=== PATIENT | male | born 1945 | race Caucasian/White ===

== ENCOUNTER 2016-07-03 23:00 | Emergency (ER) | payer BC, MEDICARE ==
--- NOTE | 2016-07-04 00:15 | ED ---
Sandro Rojas Billy, scribed for Jl Fuller MD on 07/04/16 at 0014 . Lower Extremity - HPI Summary HPI Summary: Patient is a 70 year-old male coming to [facility] for evaluation of left knee pain. 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 Denies head injury or LOC. - History of Current Complaint Chief Complaint: EDExtremityLower Stated Complaint: FALL/L KNEE PAIN Time Seen by Provider: 07/04/16 00:12 Hx Obtained From: Patient Mechanism Of Injury: Fall From Height Of: - stairs Onset of Pain: Hours Severity Initially: Moderate Severity Currently: Moderate Pain Intensity: 8 Pain Scale Used: 0-10 Numeric Timing: Constant Location: Is Discrete @ - left knee Associated Signs And Symptoms: Positive: Negative Able to Bear Weight: Yes - Allergies/Home Medications Allergies/Adverse Reactions: Allergies Allergy/AdvReac Type Severity Reaction Status Date / Time No Known Allergies Allergy Verified 07/03/16 23:12 PMH/Surg Hx/FS Hx/Imm Hx Endocrine/Hematology History: Denies: Hx Diabetes Cardiovascular History: Reports: Hx Hypertension, Other Cardiovascular Problems/ Disorders - HEART CATHERIZATION 12/2012 Respiratory History: Reports: Hx Sleep Apnea, Other Respiratory Problems/ Disorders - PREVIOUS SMOKER Denies: Hx Asthma, Hx Chronic Obstructive Pulmonary Disease (COPD) Musculoskeletal History: Reports: Hx Arthritis - LEFT KNEE, Hx Back Problems - Back Surgery in the distant past Sensory History: Reports: Hx Contacts or Glasses, Hx Hearing Problem - Hard of hearing Denies: Hx Cataracts, Hx Eye Injury, Hx Eye Prosthesis, Hx Glaucoma, Hx Legally Blind, Hx Macular Degeneration, Hx Vision Problem, Hx Deafness, Hx Hearing Aid, Other Sensory Impairments Opthamlomology History: Reports: Hx Contacts or Glasses Denies: Hx Cataracts, Hx Eye Injury, Hx Eye Prosthesis, Hx Glaucoma, Hx Legally Blind, Hx Macular Degeneration, Hx Vision Problem, Other Sensory Impairments - Surgical History Surgery Procedure, Year, and Place: 1989 BACK SURGERY, [facility]. 12/2012 [place], [facility] [place] LEFT TKA Hx Anesthesia Reactions: No Infectious Disease History: No Infectious Disease History: Denies: Traveled Outside the [place] in Last 30 Days - Family History Known Family History: Positive: Cardiac Disease, Hypertension - Social History Alcohol Use: None Substance Use Type: Reports: None Smoking Status (MU): Former Smoker Review of Systems Negative: Fever Positive: Arthralgia All Other Systems Reviewed And Are Negative: Yes Physical Exam Triage Information Reviewed: Yes Vital Signs On Initial Exam: Initial Vitals Temp Pulse Resp BP Pulse Ox 98.6 F 81 16 126/75 95 07/03/16 23:10 07/03/16 23:10 07/03/16 23:10 07/03/16 23:10 07/03/16 23:10 Vital Signs Reviewed: Yes Appearance: Positive: No Pain Distress, Obese Skin: Positive: Warm Eyes: Positive: MACEY ENT: Positive: Hearing grossly normal Respiratory/Lung Sounds: Positive: Breath Sounds Present Musculoskeletal: Positive: Other - lt knee mild diffuse swelling from, no deformity Neurological: Positive: Alert, Oriented to Person Place, Time, Normal Gait Psychiatric: Positive: Affect/Mood Appropriate Diagnostics - Vital Signs Vital Signs Temp Pulse Resp BP Pulse Ox 07/03/16 23:10 98.6 F 81 16 126/75 95 - Laboratory Lab Statement: Any lab studies that have been ordered have been reviewed, and results considered in the medical decision making process. - Radiology Knee XR Radiology Interpretation Completed By: ED Physician - Hardware in place. Otherwise normal. Lower Extremity Course/Dx - Diagnoses Provider Diagnoses: Knee pain Discharge - Discharge Plan Condition: Stable Disposition: HOME Patient Education Materials: Knee Pain (ED) Referrals: Jorge Bowie MD [Primary Care Provider] - The documentation as recorded by the Sandro jordan Billy accurately reflects the service I personally performed and the decisions made by , Jl Fuller MD.
[2016-07-04 00:24] VITALS: BP 112/68
--- NOTE | 2016-07-04 07:22 | RAD ---
INDICATION: Left knee injury. TECHNIQUE: 2 views of the left knee were obtained. FINDINGS: The patient is status post total left knee replacement surgery. The bones and prostheses are in normal alignment. No fracture is seen. IMPRESSION: POSTSURGICAL CHANGES, NO EVIDENCE FOR FRACTURE.
== END 2016-07-04 00:24 | disposition home or self-care (01) ==
LOC: ED 23:00
DX: M25.562 Pain in left knee (principal); Z87.891 Personal history of nicotine dependence
CPT/HCPCS: 99282

== ENCOUNTER 2016-08-14 20:09 | Emergency (ER) | payer BC, MEDICARE ==
[2016-08-14 20:18] VITALS: BP 101/66
--- NOTE | 2016-08-14 21:27 | RAD ---
INDICATION: Left flank pain. COMPARISON: Comparison is made with a prior chest x-ray study from October 14, 2013. TECHNIQUE: Dual-energy PA and lateral views of the chest were obtained. FINDINGS: The heart is within normal limits in size. Mediastinal and hilar contours appear within normal limits. The lungs are underinflated. There is a small infiltrate at the right lung base. There is flattening of the diaphragms suggestive of chronic obstructive pulmonary disease. No pleural effusion is seen. IMPRESSION: EXPIRATORY EXAM, SMALL RIGHT BASILAR INFILTRATE.
--- NOTE | 2016-08-14 21:30 | RAD ---
INDICATION: Left flank abdominal pain. COMPARISON: There are no prior studies available for comparison. TECHNIQUE: Supine and upright views of the abdomen were obtained. FINDINGS: The small bowel and colon appear nondistended. No free intraperitoneal air is seen. No abnormal calcifications are seen. The patient is status post laminectomy and posterior spinal fusion in the lower lumbar spine with pedicle screws. IMPRESSION: NO EVIDENCE FOR ACUTE FINDING.
--- NOTE | 2016-08-14 21:32 | UC ---
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 (STATES HE IS SWEATY ALL THE TIME) NO UTI SYMPTOMS NO CHANGE BOWEL HABITS - History of Current Complaint Chief Complaint: UCAbdominalPain Stated Complaint: SOB,NUMBNESS HANDS,ABD PAIN Time Seen by Provider: 08/14/16 20:22 Hx Obtained From: Patient Onset/Duration: Sudden Onset, Lasting Minutes - SECONDS Timing: Intermittent Episodes Lasting: - SECONDS Severity Initially: Moderate Severity Currently: None Pain Intensity: 0 Pain Scale Used: 0-10 Numeric Location: Other - LEFT FLAND Radiates: No Character: Sharp Aggravating Factor(s):: Nothing Alleviating Factor(s): Spontaneous Resolution Associated Signs And Symptoms: Positive: Diaphoresis - CHRONIC COMPLAINT PER PT , Cough - RARE. Negative: Chest Pain, Dizzy, Back Pain, Constipation, Blood in Stool, Urinary Symptoms, Decreased Appetite, Vomiting, Diarrhea - Allergies/Home Medications Allergies/Adverse Reactions: Allergies Allergy/AdvReac Type Severity Reaction Status Date / Time No Known Allergies Allergy Verified 08/14/16 20:17 PMH/Surg Hx/FS Hx/Imm Hx Previously Healthy: Yes Cardiovascular History: Cardiac Disease, Hypertension - Surgical History Surgical History: Yes Surgery Procedure, Year, and Place: 1989 BACK SURGERY, [facility]. 12/2012 HEART CATHERIZATION, [facility] [place]. LEFT KNEE REPLACEMENT - Family History Known Family History: Positive: Cardiac Disease, Hypertension - Social History Alcohol Use: Rare Substance Use Type: None Smoking Status (MU): Former Smoker Household Exposure Type: Cigarettes - Immunization History Most Recent Influenza Vaccination: DOES NOT GET Most Recent Tetanus Shot: UNKNOWN Most Recent Pneumonia Vaccination: NONE Review of Systems Constitutional: Negative Skin: Negative Eyes: Negative ENT: Negative Respiratory: Negative Cardiovascular: Negative Gastrointestinal: Negative Genitourinary: Negative Motor: Negative Neurovascular: Negative Musculoskeletal: Arthralgia - SHRONIC Neurological: Negative Psychological: Negative All Other Systems Reviewed And Are Negative: Yes Physical Exam Triage Information Reviewed: Yes Appearance: Well-Appearing, No Pain Distress, Well-Nourished, Obese Vital Signs: Initial Vital Signs Temp 97.7 F 08/14/16 20:12 Pulse 104 08/14/16 20:12 Resp 22 08/14/16 20:12 BP 101/66 08/14/16 20:12 Pulse Ox 94 08/14/16 20:12 Vital Signs Reviewed: Yes Eyes: Positive: Conjunctiva Clear ENT: Negative: Hearing grossly normal, Nasal congestion, Trismus Neck: Positive: Supple, Nontender, No Lymphadenopathy Respiratory: Positive: Lungs clear, Normal breath sounds, No respiratory distress, No accessory muscle use Cardiovascular: Positive: RRR, No Murmur Abdomen Description: Positive: Nontender, No Organomegaly, Soft. Negative: CVA Tenderness (R), CVA Tenderness (L) Bowel Sounds: Positive: Present Musculoskeletal: Positive: Edema @ - PRE TIBIAL Psychological Exam: Normal Skin Exam: Normal Diagnostics - EKG Cardiac Rate: NL Cardiac Rhythm: Sinus: Normal Ectopy: None ST Segment: Non-Specific Abd Pain Male Course/Dx - Differential Dx/Clinical Impression Provider Diagnoses: PNEUMONIA Discharge - Discharge Plan Condition: Stable Disposition: HOME Prescriptions: Amoxicillin (*) [Amoxicillin 875 MG (*)] 875 mg PO BID #20 tab Patient Education Materials: Pneumonia (ED) Referrals: Jorge Bowie MD [Primary Care Provider] - 2 Days Additional Instructions: YOU MAY HAVE AN EARLY PNEUMONIA TO ER FOR NEW OR WROSENING SYMPTOMS RECHECK IN 1-2 DAYS
[2016-08-14] MEDS ORDERED: Amoxicillin CAP* 500 MG PO ONE (21:45)
== END 2016-08-14 21:55 | disposition home or self-care (01) ==
LOC: UCEAST 20:09
DX: J18.9 Pneumonia, unspecified organism (principal); I10 Essential (primary) hypertension; E66.9 Obesity, unspecified; Z96.652 Presence of left artificial knee joint; Z87.891 Personal history of nicotine dependence
CPT/HCPCS: 71020; 74020; 93005; 99212; A9270-GY; G0463

== ENCOUNTER 2016-08-30 13:42 | Emergency (ER) | payer BC, MEDICARE ==
[2016-08-30 15:49] LABS: Hematocrit 32 % (42-52); Hemoglobin 10.9 g/dl (14.0-18.0); Mean Corpuscular HGB Conc 34 g/dl (31-36); Mean Corpuscular Hemoglobin 32 pg (27-31); Mean Corpuscular Volume 94 fL (80-94); Mean Platelet Volume 10 um3 (7.4-10.4); Red Blood Count 3.39 10^6/ul (4.0-5.4); Red Cell Distribution Width 13 % (10.5-15); White Blood Count 7.3 10^3/ul (3.5-10.8)
[2016-08-30 16:03] LABS: Albumin 3.7 g/dL (3.2-5.2); BUN/Creatinine Ratio 17.1 (8-20); EGFR African American 64.4 (>60); EGFR Non-African American 50.1 (>60); Globulin 4.2 g/dL (2-4); Potassium 3.8 mmol/L (3.5-5.0); Total Bilirubin 0.8 mg/dL (0.2-1.0); Total Protein 7.9 g/dL (6.4-8.9)
[2016-08-30 17:49] VITALS: BP 133/76
--- NOTE | 2016-08-30 22:33 | ED ---
Ilsa Rojas Seung-Jae, scribed for Graham Brown MD on 08/30/16 at 1629 . Complex/Multi-Sys Presentation - HPI Summary HPI Summary: Pt is a 71 y/o M who was referred from [facility] presenting to the ED with c/o nausea and vomiting. Onset was 3 days ago and has been constant REEL MAN. Pt states having eaten nothing other than some nell kee and toast for 3 days. Sx aggravated by PO intake, alleviated by spontaneous resolution. Currently pt states improvement of Sx and wishes to try consuming food. Pt denies diarrhea. Pt had recently finished his medication for PNA, and states that pain from PNA is gone. Pt is a former smoker. - History Of Current Complaint Chief Complaint: EDNauseaVomitDiarrh Time Seen by Provider: 08/30/16 16:04 Hx Obtained From: Patient Onset/Duration: Gradual Onset, Lasting Days Timing: Constant Severity Currently: None Severity Initially: Moderate Aggravating Factor(s): PO intake Alleviating Factor(s): Spontaneous resolution Associated Signs And Symptoms: Positive: Nausea, Vomiting. Negative: Diarrhea - Allergies/Home Medications Allergies/Adverse Reactions: Allergies Allergy/AdvReac Type Severity Reaction Status Date / Time No Known Allergies Allergy Verified 08/14/16 20:17 PMH/Surg Hx/FS Hx/Imm Hx Previously Healthy: No Endocrine/Hematology History: Denies: Hx Diabetes Cardiovascular History: Reports: Hx Hypertension, Other Cardiovascular Problems/ Disorders - HEART CATHERIZATION 12/2012 Respiratory History: Reports: Hx Sleep Apnea, Other Respiratory Problems/ Disorders - PREVIOUS SMOKER Denies: Hx Asthma, Hx Chronic Obstructive Pulmonary Disease (COPD) Musculoskeletal History: Reports: Hx Arthritis - LEFT KNEE, Hx Back Problems - Back Surgery in the distant past Sensory History: Reports: Hx Contacts or Glasses, Hx Hearing Problem - Hard of hearing Denies: Hx Cataracts, Hx Eye Injury, Hx Eye Prosthesis, Hx Glaucoma, Hx Legally Blind, Hx Macular Degeneration, Hx Vision Problem, Hx Deafness, Hx Hearing Aid, Other Sensory Impairments Opthamlomology History: Reports: Hx Contacts or Glasses Denies: Hx Cataracts, Hx Eye Injury, Hx Eye Prosthesis, Hx Glaucoma, Hx Legally Blind, Hx Macular Degeneration, Hx Vision Problem, Other Sensory Impairments - Surgical History Surgery Procedure, Year, and Place: 1989 BACK SURGERY, [facility]. 12/2012 [place], [facility] [place]NEE REPLACEMENT Hx Anesthesia Reactions: No Infectious Disease History: No Infectious Disease History: Denies: Traveled Outside the [place] in Last 30 Days - Family History Known Family History: Positive: Cardiac Disease, Hypertension - Social History Alcohol Use: Rare Substance Use Type: Reports: None Hx Tobacco Use: Yes Smoking Status (MU): Former Smoker Review of Systems Constitutional: Negative Eyes: Negative ENT: Negative Cardiovascular: Negative Positive: Palpitations Respiratory: Negative Positive: Vomiting, Nausea. Negative: Diarrhea Genitourinary: Negative Musculoskeletal: Negative Skin: Negative Neurological: Negative Psychological: Normal All Other Systems Reviewed And Are Negative: Yes Physical Exam Triage Information Reviewed: Yes Vital Signs On Initial Exam: Initial Vitals Temp Pulse Resp BP Pulse Ox 100.6 F 107 22 115/88 91 08/30/16 13:53 08/30/16 13:53 08/30/16 13:53 08/30/16 13:53 08/30/16 13:53 Vital Signs Reviewed: Yes Appearance: Positive: Well-Appearing, No Pain Distress Skin: Positive: Warm, Skin Color Reflects Adequate Perfusion, Dry Head/Face: Positive: Normal Head/Face Inspection Eyes: Positive: Normal ENT: Positive: Normal ENT inspection Neck: Positive: Supple, Nontender Respiratory/Lung Sounds: Positive: Clear to Auscultation, Breath Sounds Present Cardiovascular: Positive: RRR Abdomen Description: Positive: Nontender, Soft Bowel Sounds: Positive: Present Musculoskeletal: Positive: Normal Neurological: Positive: Normal Psychiatric: Positive: Normal Diagnostics - Vital Signs Vital Signs Temp Pulse Resp BP Pulse Ox 08/30/16 15:03 100.6 F 107 20 115/88 95 08/30/16 13:53 100.6 F 107 22 115/88 91 - Laboratory Lab Results: Lab Results 08/30/16 08/30/16 Range/Units 15:14 15:14 WBC 7.3 (3.5-10.8) 10^3/ul RBC 3.39 L (4.0-5.4) 10^6/ul Hgb 10.9 L (14.0-18.0) g/dl Hct 32 L (42-52) % MCV 94 (80-94) fL MCH 32 H (27-31) pg MCHC 34 (31-36) g/dl RDW 13 (10.5-15) % Plt Count 146 L (150-450) 10^3/ul MPV 10 (7.4-10.4) um3 Neut % (Auto) 61.9 (38-83) % Lymph % (Auto) 28.5 (25-47) % [place] % (Auto) 9.0 (1-9) % Eos % (Auto) 0.1 (0-6) % Baso % (Auto) 0.5 (0-2) % Absolute Neuts (auto) 4.5 (1.5-7.7) 10^3/ul Absolute Lymphs (auto) 2.1 (1.0-4.8) 10^3/ul Absolute Monos (auto) 0.7 (0-0.8) 10^3/ul Absolute Eos (auto) 0 (0-0.6) 10^3/ul Absolute Basos (auto) 0 (0-0.2) 10^3/ul Absolute Nucleated RBC 0 10^3/ul Nucleated RBC % 0 Sodium 131 L (133-145) mmol/L Potassium 3.8 (3.5-5.0) mmol/L Chloride 98 L (101-111) mmol/L Carbon Dioxide 26 (22-32) mmol/L Anion Gap 7 (2-11) mmol/L BUN 24 (6-24) mg/dL Creatinine 1.40 H (0.67-1.17) mg/dL Est GFR ( Amer) 64.4 (>60) Est GFR (Non-Af Amer) 50.1 (>60) BUN/Creatinine Ratio 17.1 (8-20) Glucose 118 H (70-100) mg/dL Calcium 9.0 (8.6-10.3) mg/dL Total Bilirubin 0.80 (0.2-1.0) mg/dL AST 16 (13-39) U/L ALT 15 (7-52) U/L Alkaline Phosphatase 59 (34-104) U/L Troponin I 0.00 (<0.04) ng/mL Total Protein 7.9 (6.4-8.9) g/dL Albumin 3.7 (3.2-5.2) g/dL Globulin 4.2 H (2-4) g/dL Albumin/Globulin Ratio 0.9 L (1-3) Result Diagrams: 08/30/16 15:14 08/30/16 15:14 Lab Statement: Any lab studies that have been ordered have been reviewed, and results considered in the medical decision making process. Re-Evaluation - Re-Evaluation First Eval Re-Evaluation Time: 17:33 Change: Improved Comment: Feeling better and owuld like to be D/C Complex Multi-Symp Course/Dx Course Of Treatment: Mr. Campos was recently treated for pneumonia and felt better for several days. The last couple of days he's been nauseated and anorexic. Otherwise he feel fine and he only vomited once two days ago. He was feeling better when I saw him and felt that he did not need to be seen. We gave him some food and he was able to eat and still felt fine. He was D/C'd to return or F/U if he relapses. - Diagnoses Provider Diagnoses: Nausea Discharge - Discharge Plan Condition: Stable Disposition: HOME Patient Education Materials: Acute Nausea and Vomiting (ED) Referrals: Mayo Goodrich MD [Primary Care Provider] - 3 Days The documentation as recorded by the Ilsa jordan Seung-Jae accurately reflects the service I personally performed and the decisions made by me, Graham Brown MD.
== END 2016-08-30 17:48 | disposition home or self-care (01) ==
LOC: ED 13:42
DX: R11.2 Nausea with vomiting, unspecified (principal); R00.2 Palpitations; Z87.891 Personal history of nicotine dependence
CPT/HCPCS: 36415; 80053; 84484; 85025; 99283

== ENCOUNTER 2017-07-02 20:45 | Emergency (ER) | payer BC, MEDICARE ==
[2017-07-02 20:54] VITALS: BP 123/73
--- NOTE | 2017-07-02 20:56 | UC ---
Lower Extremity/Ankle HPI - HPI Summary HPI Summary: 71 yo male presents with right foot pain since yesterday. He tells me that yesterday he was walking in the kitchen barefoot and felt a sharp pain in his foot. Today his friend looked at pt's foot and said he pulled out a small piece of glass. Pt wants to make sure the glass is gone. Thinks last tetanus was 5 years ago - History of Current Complaint Chief Complaint: UCLowerExtremity Stated Complaint: FOOT INJURY Time Seen by Provider: 07/02/17 20:56 Hx Obtained From: Patient Onset/Duration: Sudden Onset Severity Initially: Severe Severity Currently: Severe Pain Intensity: 8 Pain Scale Used: 0-10 Numeric Aggravating Factor(s): Standing, Ambulation Able to Bear Weight: Yes - Allergies/Home Medications Allergies/Adverse Reactions: Allergies Allergy/AdvReac Type Severity Reaction Status Date / Time No Known Allergies Allergy Verified 07/02/17 20:54 PMH/Surg Hx/FS Hx/Imm Hx Cardiovascular History: Hypertension - Surgical History Surgical History: Yes Surgery Procedure, Year, and Place: 1989 BACK SURGERY, [facility]. 12/2012 HEART CATHERIZATION, [facility] – [place]. LEFT KNEE REPLACEMENT - Family History Known Family History: Positive: Cardiac Disease, Hypertension - Social History Occupation: Retired Lives: With Family Alcohol Use: Rare Substance Use Type: None Smoking Status (MU): Former Smoker Household Exposure Type: Cigarettes - Immunization History Most Recent Influenza Vaccination: DOES NOT GET Most Recent Tetanus Shot: UNKNOWN Most Recent Pneumonia Vaccination: NONE Review of Systems Constitutional: Negative Skin: Other - ?FB in foot Respiratory: Negative Cardiovascular: Negative Neurovascular: Negative Musculoskeletal: Negative Neurological: Negative Psychological: Negative All Other Systems Reviewed And Are Negative: Yes Physical Exam - Summary Physical Exam Summary: GENERAL: NAD. Obese SKIN: Plantar surface of right foot at 5th MTP: 1mm area of scant bleeding. Very TTP. No hardness or FB appreciated. No erythema. NECK: Supple. Nontender. No lymphadenopathy. CHEST: No accessory muscle use. Breathing comfortably and in no distress. CV: RRR. Without m/r/g. Pulses intact PT and DP. Brisk cap refill. NEURO: Alert. Sensations intact and symmetric B/L LEs PSYCH: Age appropriate behavior. Triage Information Reviewed: Yes Vital Signs: Initial Vital Signs Temp 97.9 F 07/02/17 20:51 Pulse 81 07/02/17 20:51 Resp 24 07/02/17 20:51 BP 123/73 07/02/17 20:51 Pulse Ox 98 07/02/17 20:51 Lower Extremity Course/Dx - Course Course Of Treatment: No FB appreciated, but does appear that he stepped on something in that area recently. Advised to apply band-aid and will heal in few days - Differential Dx/Diagnosis Provider Diagnoses: Right foot step on glass Discharge - Sign-Out/Discharge Documenting (check all that apply): Discharge/Admit/Transfer - Discharge Plan Condition: Stable Disposition: HOME Patient Education Materials: Soft Tissue Foreign Body (ED) Referrals: Mayo Goodrich MD [Primary Care Provider] - Additional Instructions: If you develop a fever, shortness of breath, chest pain, new or worsening symptoms - please call your PCP or go to the ED. - Billing Disposition and Condition Condition: STABLE Disposition: HOME
== END 2017-07-02 21:30 | disposition home or self-care (01) ==
LOC: UCEAST 20:45
DX: S91.331A Puncture wound without foreign body, right foot, initial encounter (principal); W25.XXXA Contact with sharp glass, initial encounter; Y93.01 Activity, walking, marching and hiking; Y92.000 Kitchen of unspecified non-institutional (private) residence as the place of occurrence of the external cause; I10 Essential (primary) hypertension; Z96.652 Presence of left artificial knee joint; Z87.891 Personal history of nicotine dependence
CPT/HCPCS: 99211; G0463

== ENCOUNTER 2017-07-11 20:09 | Emergency (ER) | payer BC, MEDICARE ==
[2017-07-11 20:23] VITALS: BP 124/78
--- NOTE | 2017-07-11 20:52 | UC ---
Skin Complaint HPI - HPI Summary HPI Summary: 10 DAYS AGO PATIENT REPORTS HE STEPPED ON A PIECE OF GLASS WHICH HIS FRIEND REMOVED. CAME TO THE URGENT CARE THE NEXT DAY TO ENSURE THERE WAS NO FURTHER FB IN HIS FOOT. PATIENT WAS EVALUATED AND CLINICALLY APPEARED TO BE FREE OF FOREIGN BODY. PATIENT STATES HE HAS HAD DISCOMFORT IN THE AREA EVER SINCE AND 2 DAYS AGO IT BECAME RED AND SWOLLEN AND MORE PAINFUL. NO FEVER. - History of Current Complaint Chief Complaint: UCLowerExtremity Time Seen by Provider: 07/11/17 20:28 Stated Complaint: glass IN FOOT Hx Obtained From: Patient Onset/Duration: Gradual Onset, Lasting Days, Still Present Timing: Constant Onset Severity: Moderate Current Severity: Moderate Pain Intensity: 0 Pain Scale Used: 0-10 Numeric Location: Foot (Right) Character: Redness, Painful Aggravating Factor(s): Touch Alleviating Factor(s): Nothing Associated Signs & Symptoms: Positive: Tenderness - Allergy/Home Medications Allergies/Adverse Reactions: Allergies Allergy/AdvReac Type Severity Reaction Status Date / Time No Known Allergies Allergy Verified 07/11/17 20:17 Review of Systems Constitutional: Negative Skin: Other - ABSCESS AND ERYTHEMA RIGHT FOOT Respiratory: Negative Cardiovascular: Negative Gastrointestinal: Negative All Other Systems Reviewed And Are Negative: Yes PMH/Surg Hx/FS Hx/Imm Hx Cardiovascular History: Hypertension - Surgical History Surgical History: Yes Surgery Procedure, Year, and Place: 1989 BACK SURGERY, [facility]. 12/2012 HEART CATHERIZATION, [facility] [place]. LEFT KNEE REPLACEMENT - Family History Known Family History: Positive: Cardiac Disease, Hypertension - Social History Alcohol Use: Rare Substance Use Type: None Smoking Status (MU): Former Smoker Household Exposure Type: Cigarettes - Immunization History Most Recent Influenza Vaccination: DOES NOT GET Most Recent Tetanus Shot: UNKNOWN Most Recent Pneumonia Vaccination: NONE Physical Exam Triage Information Reviewed: Yes Appearance: Well-Appearing, No Pain Distress, Well-Nourished Vital Signs: Initial Vital Signs Temp 98.7 F 07/11/17 20:17 Pulse 78 07/11/17 20:17 Resp 18 07/11/17 20:17 BP 124/78 07/11/17 20:17 Pulse Ox 96 07/11/17 20:17 Vital Signs Reviewed: Yes Eyes: Positive: Conjunctiva Clear ENT: Positive: Hearing grossly normal Neck: Positive: Supple Respiratory: Positive: No respiratory distress, No accessory muscle use Cardiovascular: Positive: Pulses Normal Abdomen Description: Positive: Soft Musculoskeletal: Positive: ROM Intact Neurological: Positive: Alert Psychological: Positive: Age Appropriate Behavior Skin: Positive: Other - 2CM X 1.5CM AREA OF FLUCTUANCE SURROUNDED BY 6CM AREA OF ERYTHEMA. MILDLY TENDER. Diagnostics - Radiology RIGHT FOOT XRAY Xray Interpretation: No Acute Changes - NO FB Radiology Interpretation Completed By: Radiologist Course/Dx - Course Course Of Treatment: ABSCESS I&D'D, PUS EXPRESSED AND CULTURE SENT. AFTER DEBRIDING WOUND A FOREIGN BODY WAS DISCOVERED AND A 2.3CM SEWING NEEDLE WAS REMOVED FROM PT LATERAL RIGHT FOOT AT LEVEL OF MID 5TH METATARSAL. XRAY NEGATIVE FOR ANY FURTHER RETAINED FB. WILL COVER WITH LEVOFLOXACIN AND HAVE PT FOLLOW-UP FOR RECHECK IN 2-3 DAYS. TDAP BOOSTED. - Diagnoses Provider Diagnoses: 1. RIGHT FOOT FOREIGN BODY REMOVAL. 2. RIGHT FOOT ABSCESS. 3. TDAP BOOSTER Discharge - Sign-Out/Discharge Documenting (check all that apply): Discharge/Admit/Transfer - Discharge Plan Condition: Stable Disposition: HOME Prescriptions: levoFLOXacin [Levofloxacin] 750 mg PO DAILY #6 tablet Patient Education Materials: Soft Tissue Foreign Body (ED), Abscess (ED) Referrals: Mayo Goodrich MD [Primary Care Provider] - 3 Days Additional Instructions: 2.3 CM SEWING NEEDLE REMOVED FROM YOUR RIGHT FOOT TODAY. YOU HAVE AN ASSOCIATED ABSCESS AND CELLULITIS. TAKE THE ANTIBIOTIC FOR THE FULL 7 DAYS. CONTINUE HOT SOAKS SEVERAL TIMES DAILY. TRY TO AVOID WALKING ON IT MUCH POSSIBLE UNTIL IT IS FULLY HEALED. GIVEN YOUR INABILITY TO SEE THE BOTTOM OF THE FOOT IT IS VERY IMPORTANT THAT YOU HAVE THIS WOUND RECHECKED IN 2-3 DAYS. FOLLOW-UP WITH YOUR PCP FOR THIS OR RETURN HERE FOR REEVALUATION IF YOU'RE UNABLE TO SECURE AN APPOINTMENT WITH YOUR PCP. TETANUS IMMUNIZATION GIVEN (TDAP): You have been given an immunization against tetanus. Please record this in your records. In general, a booster is needed only once every 10 years. The tetanus shot protects against tetanus or "lockjaw," which is a complication of certain wound infections (the tetanus shot cannot protect against the actual infection). The immunization site may become warm and red due to local reaction. If this occurs, apply warm compresses and take aspirin or ibuprofen to reduce inflammation and discomfort. Return for evaluation if the reaction becomes severe. - Billing Disposition and Condition Condition: STABLE Disposition: HOME
[2017-07-11] MEDS ORDERED: Tetan/Diph/Pertus SYR(Tdap)* 0.5 ML SYR(BOOSTRIX) use SYR IM ONE (21:09)
[2017-07-11] MEDS ORDERED: Levofloxacin TAB* 250 MG PO ONE (21:19)
--- NOTE | 2017-07-11 21:43 | RAD ---
INDICATION: Pain and redness at the right fifth metatarsal 2 weeks after removing foreign body COMPARISON: None. TECHNIQUE: 3 views of the right foot were obtained. FINDINGS: There is no radiopaque foreign body overlying the subcutaneous soft tissue. On the oblique view of the foot there is a faintly circumscribed relatively hypodense subcutaneous focus just lateral to the diaphysis of the right fifth metatarsal measuring 1.2 cm in greatest dimension. The adequately corticated bones are properly aligned. Joint spaces appear maintained. No fracture, dislocation or focal bony abnormality is seen. IMPRESSION: NO SUBCUTANEOUS FOREIGN BODY IS DISCRETELY VISUALIZED BUT THERE IS A FAINT 1.2 CM SUBCUTANEOUS LUCENCY JUST LATERAL TO THE RIGHT FIFTH METATARSAL. If the patient's symptoms persist, follow-up imaging is recommended.
--- NOTE | 2017-07-13 19:41 | UC ---
- Progress Note Progress Note: 07/13/2017 Wound culture preliminary: Staphylococcus epidermis. Pt Rx Levofloxacin PO which covers. Awaiting final sensitivity report. Minoo Long PA-C Discharge - Sign-Out/Discharge Documenting (check all that apply): Discharge/Admit/Transfer - D/c home - Discharge Plan Condition: Stable Disposition: HOME Prescriptions: levoFLOXacin [Levofloxacin] 750 mg PO DAILY #6 tablet Patient Education Materials: Soft Tissue Foreign Body (ED), Abscess (ED) Referrals: Mayo Goodrich MD [Primary Care Provider] - 3 Days Additional Instructions: 2.3 CM SEWING NEEDLE REMOVED FROM YOUR RIGHT FOOT TODAY. YOU HAVE AN ASSOCIATED ABSCESS AND CELLULITIS. TAKE THE ANTIBIOTIC FOR THE FULL 7 DAYS. CONTINUE HOT SOAKS SEVERAL TIMES DAILY. TRY TO AVOID WALKING ON IT MUCH POSSIBLE UNTIL IT IS FULLY HEALED. GIVEN YOUR INABILITY TO SEE THE BOTTOM OF THE FOOT IT IS VERY IMPORTANT THAT YOU HAVE THIS WOUND RECHECKED IN 2-3 DAYS. FOLLOW-UP WITH YOUR PCP FOR THIS OR RETURN HERE FOR REEVALUATION IF YOU'RE UNABLE TO SECURE AN APPOINTMENT WITH YOUR PCP. TETANUS IMMUNIZATION GIVEN (TDAP): You have been given an immunization against tetanus. Please record this in your records. In general, a booster is needed only once every 10 years. The tetanus shot protects against tetanus or "lockjaw," which is a complication of certain wound infections (the tetanus shot cannot protect against the actual infection). The immunization site may become warm and red due to local reaction. If this occurs, apply warm compresses and take aspirin or ibuprofen to reduce inflammation and discomfort. Return for evaluation if the reaction becomes severe. - Billing Disposition and Condition Condition: STABLE Disposition: HOME
--- NOTE | 2017-07-18 09:53 | UC ---
- Progress Note Progress Note: call to patient to assure his foot wound had resolved---message left on home phone to return call Discharge - Sign-Out/Discharge Documenting (check all that apply): Post-Discharge Follow Up - Discharge Plan Condition: Stable Disposition: HOME Prescriptions: levoFLOXacin [Levofloxacin] 750 mg PO DAILY #6 tablet Patient Education Materials: Soft Tissue Foreign Body (ED), Abscess (ED) Referrals: Mayo Goodrich MD [Primary Care Provider] - 3 Days Additional Instructions: 2.3 CM SEWING NEEDLE REMOVED FROM YOUR RIGHT FOOT TODAY. YOU HAVE AN ASSOCIATED ABSCESS AND CELLULITIS. TAKE THE ANTIBIOTIC FOR THE FULL 7 DAYS. CONTINUE HOT SOAKS SEVERAL TIMES DAILY. TRY TO AVOID WALKING ON IT MUCH POSSIBLE UNTIL IT IS FULLY HEALED. GIVEN YOUR INABILITY TO SEE THE BOTTOM OF THE FOOT IT IS VERY IMPORTANT THAT YOU HAVE THIS WOUND RECHECKED IN 2-3 DAYS. FOLLOW-UP WITH YOUR PCP FOR THIS OR RETURN HERE FOR REEVALUATION IF YOU'RE UNABLE TO SECURE AN APPOINTMENT WITH YOUR PCP. TETANUS IMMUNIZATION GIVEN (TDAP): You have been given an immunization against tetanus. Please record this in your records. In general, a booster is needed only once every 10 years. The tetanus shot protects against tetanus or "lockjaw," which is a complication of certain wound infections (the tetanus shot cannot protect against the actual infection). The immunization site may become warm and red due to local reaction. If this occurs, apply warm compresses and take aspirin or ibuprofen to reduce inflammation and discomfort. Return for evaluation if the reaction becomes severe. - Billing Disposition and Condition Condition: STABLE Disposition: HOME
== END 2017-07-11 22:15 | disposition home or self-care (01) ==
LOC: UCEAST 20:09
DX: S91.341S Puncture wound with foreign body, right foot, sequela (principal); W27 Contact with nonpowered hand tool; L02.611 Cutaneous abscess of right foot; Z23 Encounter for immunization; I10 Essential (primary) hypertension; Z96.652 Presence of left artificial knee joint; Z87.891 Personal history of nicotine dependence
CPT/HCPCS: 28190; 87070; 87077; 87186; 87205; 87640; 87641; 90471; 90715; 99212; A9270-GY; G0463

== ENCOUNTER 2017-07-14 18:44 | Emergency (ER) | payer BC, MEDICARE ==
[2017-07-14 19:12] VITALS: BP 104/70
--- NOTE | 2017-07-14 19:45 | UC ---
Skin Complaint HPI - HPI Summary HPI Summary: Patient is a 71-year-old male presenting to the with it chief complaint of recheck of a foot injury. He sustained the injury approximate 10 days ago after he stepped on a sewing needle. The needle was removed upon his second visit to the urgent care. The needle was 2.3cm in length. He was placed on levofloxacin 750 mg once daily 7 days. He continues to have 3 days left. He is here for a wound check as he was unable to get into see his physician. Denies any fevers, sweats, chills. Denies any erythema around the area. Denies any numbness or tingling to the area. . - History of Current Complaint [facility] Time Seen by Provider: 07/14/17 18:48 Stated Complaint: RECHECK FOOT Hx Obtained From: Patient Onset/Duration: Sudden Onset Skin Exposure Onset/Duration: Hours Ago Timing: Constant Onset Severity: Mild Current Severity: Mild Pain Intensity: 0 Pain Scale Used: 0-10 Numeric Location: Discrete - Right lateral foot Aggravating Factor(s): Nothing Alleviating Factor(s): Nothing Associated Signs & Symptoms: Positive: Negative Related History: Trauma - Allergy/Home Medications Allergies/Adverse Reactions: Allergies Allergy/AdvReac Type Severity Reaction Status Date / Time No Known Allergies Allergy Verified 07/11/17 20:17 Review of Systems Constitutional: Negative Skin: Other - Right lateral foot FB removed x 3 days ago Respiratory: Negative Cardiovascular: Negative Gastrointestinal: Negative Motor: Negative Neurovascular: Negative Psychological: Negative Is Patient Immunocompromised?: No All Other Systems Reviewed And Are Negative: Yes PMH/Surg Hx/FS Hx/Imm Hx Previously Healthy: Yes - Surgical History Surgical History: Yes Surgery Procedure, Year, and Place: 1989 BACK SURGERY, [facility]. 12/2012 HEART CATHERIZATION, [facility] [place]. LEFT KNEE REPLACEMENT - Family History Known Family History: Positive: Cardiac Disease, Hypertension - Social History Occupation: Unemployed Lives: Alone Alcohol Use: None Substance Use Type: None Smoking Status (MU): Former Smoker Household Exposure Type: Cigarettes - Immunization History Most Recent Influenza Vaccination: DOES NOT GET Most Recent Tetanus Shot: UNKNOWN Most Recent Pneumonia Vaccination: NONE Physical Exam Triage Information Reviewed: Yes Appearance: Well-Appearing, No Pain Distress, Well-Nourished Vital Signs: Initial Vital Signs Temp 98.3 F 05/25/18 19:03 Pulse 85 07/14/17 19:03 Resp 16 07/14/17 19:03 BP 104/70 07/14/17 19:03 Pulse Ox 98 07/14/17 19:03 Vital Signs Reviewed: Yes Eye Exam: Normal Neck: Positive: Supple Respiratory Exam: Normal Respiratory: Positive: Chest non-tender Cardiovascular Exam: Normal Cardiovascular: Positive: RRR Musculoskeletal Exam: Normal Musculoskeletal: Positive: Strength Intact Neurological Exam: Normal Neurological: Positive: Alert Psychological: Positive: Normal Response To Family Skin: Positive: Other - 2cm diamater well healed area to the R lateral side of the foot without erythema or warmth Course/Dx - Course Course Of Treatment: Patient was evaluated for right plantar surface wound recheck. 2.3 cm sewing needle was dislodged from the lateral side of his right foot 3 days ago. He denies any pain to the area. Denies any erythema or warmth. He has been on 3 days of levofloxacin. I have encouraged him to take 2 more days, but due to no signs of infection, I do not believe it is worth to take the full 7 day course. He is okay with this plan and will be discharged back to his PCP. - Diagnoses Provider Diagnoses: FB removal wound recheck Discharge - Sign-Out/Discharge Documenting (check all that apply): Discharge/Admit/Transfer - Discharge Plan Condition: Stable Disposition: HOME Referrals: Mayo Goodrich MD [Primary Care Provider] - Additional Instructions: Continue with antibiotics x 2 more days then stop taking The wound has healed and has no signs of infection - Billing Disposition and Condition Condition: STABLE Disposition: HOME
== END 2017-07-14 19:14 | disposition home or self-care (01) ==
LOC: UCEAST 18:44
DX: Z48.817 Encounter for surgical aftercare following surgery on the skin and subcutaneous tissue (principal); Z87.891 Personal history of nicotine dependence
CPT/HCPCS: 99211; G0463

== ENCOUNTER → 2017-10-10 01:58 | Emergency (ER) | payer BC, MEDICARE ==
[2017-10-10 02:54] LABS: ABS Basophils 0.1 10^3/ul (0-0.2); ABS Eosinophils 0.2 10^3/ul (0-0.6); ABS Lymphocytes 1.6 10^3/ul (1.0-4.8); ABS Monocytes 0.4 10^3/ul (0-0.8); ABS Neutrophils 4.5 10^3/ul (1.5-7.7); ABS Nucleated RBC 0 10^3/ul; Eosinophil % 3.1 % (0-6); Hematocrit 36 % (42-52); Hemoglobin 12.5 g/dl (14.0-18.0); Lymphocyte % 23.6 % (25-47); Mean Corpuscular HGB Conc 34 g/dl (31-36); Mean Corpuscular Hemoglobin 32 pg (27-31); Mean Corpuscular Volume 93 fL (80-94); Mean Platelet Volume 9.2 um3 (7.4-10.4); Nucleated Red Blood Cells % 0.1; Platelet Count 211 10^3/ul (150-450); Red Blood Count 3.89 10^6/ul (4.00-5.40); Red Cell Distribution Width 14 % (10.5-15); White Blood Count 6.9 10^3/ul (3.5-10.8)
[2017-10-10 03:12] LABS: EGFR Non-African American 66.7 (>60)
[2017-10-10 03:31] LABS: Urine Appearance Clear; Urine Blood Negative (Negative); Urine Color Yellow; Urine Ketones Negative (Negative); Urine Protein Negative (Negative); Urine Specific Gravity 1.014 (1.010-1.030); Urine Urobilinogen Negative (Negative)
--- NOTE | 2017-10-10 04:45 | ED ---
Shortness of Breath - HPI Summary HPI Summary: Patient complains of nasal congestion 2 days, not being able to breathe when he lay down to sleep tonight. Patient states he moved to the couch in the living room with relief of SOB, but does state he felt a little dizzy. Denies fever, cough, sore throat, CP, N/V/D, abdominal pain, change in urine, change in BM. Medical history is HTN. Denies prior cardiac history. Nonsmoker, denies EtOH, illegal drug use. Symptoms resolved by arrival here in ED. - History of Current Complaint Chief Complaint: EDUpperRespComplaint Time Seen by Provider: 10/10/17 02:29 Hx Obtained From: Patient Onset/Duration: Sudden Onset Current Severity: Mild Dyspnea At: Rest Associated Signs & Symptoms: Negative - Allergy/Home Medications Allergies/Adverse Reactions: Allergies Allergy/AdvReac Type Severity Reaction Status Date / Time No Known Allergies Allergy Verified 07/11/17 20:17 Home Medications: Home Medications Lisinopril 40 mg PO DAILY 10/10/17 [History Confirmed 10/10/17] PMH/Surg Hx/FS Hx/Imm Hx Endocrine/Hematology History: Denies: Hx Anticoagulant Therapy, Hx Diabetes Cardiovascular History: Reports: Hx Hypertension, Other Cardiovascular Problems/ Disorders - HEART CATHERIZATION 12/2012 Denies: Hx Cardiac Arrest Respiratory History: Reports: Hx Sleep Apnea, Other Respiratory Problems/ Disorders - PREVIOUS SMOKER Denies: Hx Asthma, Hx Chronic Obstructive Pulmonary Disease (COPD) Musculoskeletal History: Reports: Hx Arthritis - LEFT KNEE, Hx Back Problems - Back Surgery in the distant past Sensory History: Reports: Hx Contacts or Glasses, Hx Hearing Problem - Hard of hearing Denies: Hx Cataracts, Hx Eye Injury, Hx Eye Prosthesis, Hx Glaucoma, Hx Legally Blind, Hx Macular Degeneration, Hx Vision Problem, Hx Deafness, Hx Hearing Aid, Other Sensory Impairments Opthamlomology History: Reports: Hx Contacts or Glasses Denies: Hx Cataracts, Hx Eye Injury, Hx Eye Prosthesis, Hx Glaucoma, Hx Legally Blind, Hx Macular Degeneration, Hx Vision Problem, Other Sensory Impairments - Surgical History Surgery Procedure, Year, and Place: 1989 BACK SURGERY, [facility]. 12/2012 [place] [facility] [place]NEE REPLAC[place] Hx Anesthesia Reactions: No Infectious Disease History: No Infectious Disease History: Denies: Traveled Outside the [place] in Last 30 Days - Family History Known Family History: Positive: Cardiac Disease, Hypertension - Social History Alcohol Use: None Substance Use Type: Reports: None Hx Tobacco Use: Yes Smoking Status (MU): Former Smoker Review of Systems Constitutional: Negative Eyes: Negative Positive: Nasal Discharge Cardiovascular: Negative Positive: Shortness Of Breath Gastrointestinal: Negative Genitourinary: Negative Musculoskeletal: Negative Skin: Negative Neurological: Negative Psychological: Normal All Other Systems Reviewed And Are Negative: Yes Physical Exam - Summary Physical Exam Summary: Positive nasal congestion. Triage Information Reviewed: Yes Vital Signs On Initial Exam: Initial Vitals Temp Pulse Resp BP Pulse Ox 98.2 F 85 24 131/77 94 10/10/17 02:03 10/10/17 02:03 10/10/17 02:03 10/10/17 02:03 10/10/17 02:03 Vital Signs Reviewed: Yes Appearance: Positive: Well-Appearing Skin: Positive: Warm Head/Face: Positive: Normal Head/Face Inspection Eyes: Positive: Normal ENT: Positive: Normal ENT inspection Neck: Positive: Supple Respiratory/Lung Sounds: Positive: Clear to Auscultation Cardiovascular: Positive: Normal Abdomen Description: Positive: Nontender Musculoskeletal: Positive: Normal Neurological: Positive: Normal Psychiatric: Positive: Normal AVPU Assessment: Alert - [place] Coma Scale Best Eye Response: 4 - Spontaneous Best Motor Response: 6 - Obeys Commands Best Verbal Response: 5 - Oriented Coma Scale Total: 15 Diagnostics - Vital Signs Vital Signs Temp Pulse Resp BP Pulse Ox 10/10/17 02:03 98.2 F 85 24 131/77 94 - Laboratory Lab Results: Lab Results 10/10/17 10/10/17 10/10/17 Range/Units 02:42 02:42 03:19 WBC 6.9 (3.5-10.8) 10^3/ul RBC 3.89 L (4.00-5.40) 10^6/ul Hgb 12.5 L (14.0-18.0) g/dl Hct 36 L (42-52) % MCV 93 (80-94) fL MCH 32 H (27-31) pg MCHC 34 (31-36) g/dl RDW 14 (10.5-15) % Plt Count 211 (150-450) 10^3/ul MPV 9.2 (7.4-10.4) um3 Neut % (Auto) 65.7 (38-83) % Lymph % (Auto) 23.6 L (25-47) % [place] % (Auto) 6.3 (0-7) % Eos % (Auto) 3.1 (0-6) % Baso % (Auto) 1.3 (0-2) % Absolute Neuts (auto) 4.5 (1.5-7.7) 10^3/ul Absolute Lymphs (auto) 1.6 (1.0-4.8) 10^3/ul Absolute Monos (auto) 0.4 (0-0.8) 10^3/ul Absolute Eos (auto) 0.2 (0-0.6) 10^3/ul Absolute Basos (auto) 0.1 (0-0.2) 10^3/ul Absolute Nucleated RBC 0 10^3/ul Nucleated RBC % 0.1 Sodium 135 (135-145) mmol/L Potassium 3.5 (3.5-5.0) mmol/L Chloride 101 (101-111) mmol/L Carbon Dioxide 27 (22-32) mmol/L Anion Gap 7 (2-11) mmol/L BUN 21 (6-24) mg/dL Creatinine 1.09 (0.67-1.17) mg/dL Est GFR ( Amer) 80.7 (>60) Est GFR (Non-Af Amer) 66.7 (>60) BUN/Creatinine Ratio 19.3 (8-20) Glucose 158 H (70-100) mg/dL Calcium 8.8 (8.6-10.3) mg/dL Total Bilirubin 0.30 (0.2-1.0) mg/dL AST 15 (13-39) U/L ALT 15 (7-52) U/L Alkaline Phosphatase 58 (34-104) U/L Troponin I 0.01 (<0.04) ng/mL C-Reactive Protein 14.96 H (<8.01) mg/L Total Protein 7.6 (6.4-8.9) g/dL Albumin 4.0 (3.2-5.2) g/dL Globulin 3.6 (2-4) g/dL Albumin/Globulin Ratio 1.1 (1-3) Urine Color Yellow Urine Appearance Clear Urine pH 5.0 (5-9) Ur Specific [place] 1.014 (1.010-1.030) Urine Protein Negative (Negative) Urine Ketones Negative (Negative) Urine Blood Negative (Negative) Urine Nitrate Negative (Negative) Urine Bilirubin Negative (Negative) Urine Urobilinogen Negative (Negative) Ur Leukocyte Esterase Negative (Negative) Urine Glucose Negative (Negative) Result Diagrams: 10/10/17 02:42 10/10/17 02:42 Lab Statement: Any lab studies that have been ordered have been reviewed, and results considered in the medical decision making process. - Radiology cxr Xray Interpretation: No Acute Changes Radiology Interpretation Completed By: ED Physician - EKG 1 Cardiac Rate: NL EKG Rhythm: Sinus Rhythm ST Segment: Non-Specific Ectopy: None Course/Dx - Course Course Of Treatment: Patient complains of nasal congestion 2 days, not being able to breathe when he lay down to sleep tonight. Patient states he moved to the couch in the living room with relief of SOB, but does state he felt a little dizzy. Denies fever, cough, sore throat, CP, N/V/D, abdominal pain, change in urine, change in BM. Medical history is HTN. Denies prior cardiac history. Nonsmoker, denies EtOH, illegal drug use. Symptoms resolved by arrival here in ED. Vital signs unremarkable. Labs unremarkable. EKG and chest x-ray unremarkable. Patient nontoxic. Shortness of breath symptoms related to nasal congestion rather than cardiac or pulmonary disease. Discussed patient with Dr Menon who recommends discharge home. Follow up with primary care. - Diagnoses Provider Diagnoses: Nasal congestion Discharge - Sign-Out/Discharge Documenting (check all that apply): Patient Departure - Discharge Plan Condition: Stable Disposition: HOME Patient Education Materials: Allergic Rhinitis (ED) Referrals: Mayo Goodrich MD [Primary Care Provider] - Additional Instructions: Follow-up with primary care. Return to the ED for any new or worsening symptoms - Billing Disposition and Condition Condition: STABLE Disposition: Home
[2017-10-10 05:13] VITALS: BP 102/78
--- NOTE | 2017-10-10 08:03 | RAD ---
INDICATION: Shortness of breath. COMPARISON: Similar chest x-ray August 14, 2016 TECHNIQUE: PA and lateral views of the chest were obtained. FINDINGS: The heart and mediastinum are normal in size and contour. The pulmonary vasculature appears mildly engorged and indistinct. Otherwise the lungs are grossly clear. There is no evidence of large pleural effusion. Visualized bones are normal for the patient's age. There is no radiographic evidence of free air beneath the diaphragm IMPRESSION: CHEST X-RAY FINDINGS ARE MOST CONSISTENT WITH VASCULAR CONGESTION. R2
== END | disposition home or self-care (01) ==
LOC: ED 01:58
DX: R09.81 Nasal congestion (principal); I10 Essential (primary) hypertension; R42 Dizziness and giddiness; Z87.891 Personal history of nicotine dependence
CPT/HCPCS: 36415; 71046; 80053; 81003; 83880; 84484; 85025; 86140; 93005; 99282

== ENCOUNTER 2017-10-23 00:13 | Emergency (ER) | payer BC, MEDICARE ==
[2017-10-23] MEDS ORDERED: Pantoprazole IV* 40 MG IV ONE (00:45)
[2017-10-23] MEDS ORDERED: Aspirin 81 mg CHEW TAB* 81 MG TAB.CHEW PO ONE (00:45)
--- NOTE | 2017-10-23 00:53 | ED ---
HPI Chest Pain - HPI Summary HPI Summary: A 72 y/o M presents to ED with c/o diffuse CP onset approx 23:45 on 10/22/2017. The CP began on the L-side and radiated to his R-side and lasted approx 3 secs before spontaneously resolving. Pt was at home, seated in bed at onset. Associated sx: lightheadedness. His gave him Metoprolol 50mg of her prescription because she thought it might help him. Pt had a stress test 1.5 years ago and it was nml. Pt states having had a cold last week. Denies past abd surgeries. Takes HTN medication. Former smoker. - History of Current Complaint Chief Complaint: EDChestPainROMI Time Seen by Provider: 10/23/17 00:34 Hx Obtained From: Patient, Family/Mosaic Tiler - Onset/Duration: Started Hours Ago, Atraumatic, Still Present Timing: Lasting Seconds Current Severity: None Pain Intensity: 0 Pain Scale Used: 0-10 Numeric Chest Pain Location: Diffuse - bilater chest pain Character: Sharp/Stabbing Associated Signs and Symptoms: Positive: Lightheadedness - Allergy/Home Medications Allergies/Adverse Reactions: Allergies Allergy/AdvReac Type Severity Reaction Status Date / Time No Known Allergies Allergy Verified 07/11/17 20:17 PMH/Surg Hx/FS Hx/Imm Hx Previously Healthy: No Endocrine/Hematology History: Denies: Hx Anticoagulant Therapy, Hx Diabetes Cardiovascular History: Reports: Hx Hypertension, Other Cardiovascular Problems/ Disorders - HEART CATHERIZATION 12/2012 Denies: Hx Cardiac Arrest Respiratory History: Reports: Hx Sleep Apnea, Other Respiratory Problems/ Disorders - PREVIOUS SMOKER Denies: Hx Asthma, Hx Chronic Obstructive Pulmonary Disease (COPD) Musculoskeletal History: Reports: Hx Arthritis - LEFT KNEE, Hx Back Problems - Back Surgery in the distant past Sensory History: Reports: Hx Contacts or Glasses, Hx Hearing Problem - Hard of hearing Denies: Hx Cataracts, Hx Eye Injury, Hx Eye Prosthesis, Hx Glaucoma, Hx Legally Blind, Hx Macular Degeneration, Hx Vision Problem, Hx Deafness, Hx Hearing Aid, Other Sensory Impairments Opthamlomology History: Reports: Hx Contacts or Glasses Denies: Hx Cataracts, Hx Eye Injury, Hx Eye Prosthesis, Hx Glaucoma, Hx Legally Blind, Hx Macular Degeneration, Hx Vision Problem, Other Sensory Impairments - Surgical History Surgery Procedure, Year, and Place: 1989 BACK SURGERY, [facility]. 12/2012 HEART CATHERIZATION, [facility] [place]. LEFT KNEE REPLACEMENT Hx Anesthesia Reactions: No Infectious Disease History: No Infectious Disease History: Denies: Traveled Outside the [place] in Last 30 Days - Family History Known Family History: Positive: Cardiac Disease, Hypertension - Social History Occupation: Unemployed, Disabled Lives: With Family Alcohol Use: None Substance Use Type: Reports: None Hx Tobacco Use: Yes Smoking Status (MU): Former Smoker Review of Systems Positive: Other - pos: lightheaded Positive: Chest Pain All Other Systems Reviewed And Are Negative: Yes Physical Exam - Summary Physical Exam Summary: VITAL SIGNS: Reviewed. GENERAL: Patient is a well-developed and nourished MALE who is lying comfortable in the stretcher. Patient is not in any acute respiratory distress. HEAD AND FACE: No signs of trauma. No ecchymosis, hematomas or skull depressions. No sinus tenderness. EYES: PERRLA, EOMI x 2, No injected conjunctiva, no nystagmus. EARS: Hearing grossly intact. Ear canals and tympanic membranes are within normal limits. MOUTH: Oropharynx within normal limits. NECK: Supple, trachea is midline, no adenopathy, no JVD, no carotid bruit, no c- spine tenderness, neck with full ROM. CHEST: Symmetric, no tenderness at palpation LUNGS: Clear to auscultation bilaterally. No wheezing or crackles. CVS: Regular rate and rhythm, S1 and S2 present, no murmurs or gallops appreciated. ABDOMEN: Soft, non-tender. Distended. No rebound no guarding, and no masses palpated. Bowel sounds are normal. EXTREMITIES: FROM in all major joints, no edema, no cyanosis or clubbing. NEURO: Alert and oriented x 3. No acute neurological deficits. Speech is normal and follows commands. SKIN: Dry and warm Triage Information Reviewed: Yes Vital Signs On Initial Exam: Initial Vitals Temp Pulse Resp BP Pulse Ox 96.6 F 66 22 106/70 94 10/23/17 00:23 10/23/17 00:23 10/23/17 00:23 10/23/17 00:23 10/23/17 00:23 Vital Signs Reviewed: Yes Diagnostics - Vital Signs Vital Signs Temp Pulse Resp BP Pulse Ox 10/23/17 00:23 96.6 F 66 22 106/70 94 - Laboratory Result Diagrams: 10/23/17 01:11 10/23/17 01:11 Lab Statement: Any lab studies that have been ordered have been reviewed, and results considered in the medical decision making process. - Radiology CXR Xray Interpretation: No Acute Changes - No acute changes, no changes from prev CXR. Radiology Interpretation Completed By: ED Physician - Pending official report - EKG 0038 Cardiac Rate: NL - 67 bpm EKG Rhythm: Sinus Rhythm EKG Interpretation: small T wave in inferior leads 02:36 Cardiac Rate: NL - 65 bpm EKG Rhythm: Sinus Rhythm EKG Interpretation: small T wave in inferior leads EKG Comparison: No Significant Change - from prev EKG at 00:38 Re-Evaluation - Re-Evaluation 1 Re-Evaluation Time: 02:27 Change: Improved Comment: Pt is feeling better, will order a repeat EKG. Chest Pain Course/Dx - Course Course Of Treatment: Pt is a 72 y/o M, with hx HTN, had 3 sec episode of pain across his lower chest, so he came to ED. Sx had resolved [employer]IN [employer]IVER. Pt took Metoprolol 50 mg. PE found distended abd. EKG is unremarkable and his trop is 0.00. Pt is asymptomatic in ED. Will D/C home, and recommend out-patient stress test as soon as possible. - Diagnoses Provider Diagnoses: GERD (gastroesophageal reflux disease), Atypical chest pain Discharge - Sign-Out/Discharge Documenting (check all that apply): Patient Departure - DC - Discharge Plan Condition: Stable Disposition: HOME Prescriptions: Pantoprazole TAB (NF) [Protonix TAB (NF)] 40 mg PO DAILY #30 tab Patient Education Materials: Pantoprazole (By mouth), Chest Pain (ED), Gastroesophageal Reflux Disease (ED) Referrals: Mayo Goodrich MD [Primary Care Provider] - As Soon As Possible (To schedule an out patient stress test.) Additional Instructions: Follow up with your primary care provider MAHIN to do an out-patient stress test. RETURN TO THE EMERGENCY DEPARTMENT FOR CHANGING OR WORSENING SYMPTOMS. - Attestation Statements Document Initiated by Scribe: Yes Documenting Scribe: Alcira Marie Provider For Whom Scribe is Documenting (Include Credential): Dr. Demetrice Anand MD Scribe Attestation: I, Alcira Marie, scribed for Dr. Demetrice Anand MD on 10/23/17 at 0250.
[2017-10-23 01:18] LABS: ABS Basophils 0.1 10^3/ul (0-0.2); ABS Eosinophils 0.5 10^3/ul (0-0.6); ABS Lymphocytes 2.4 10^3/ul (1.0-4.8); ABS Monocytes 0.8 10^3/ul (0-0.8); ABS Neutrophils 5.5 10^3/ul (1.5-7.7); ABS Nucleated RBC 0 10^3/ul; Eosinophil % 5.2 % (0-6); Hematocrit 38 % (42-52); Hemoglobin 12.5 g/dl (14.0-18.0); Lymphocyte % 25.9 % (25-47); Mean Corpuscular HGB Conc 33 g/dl (31-36); Mean Corpuscular Hemoglobin 31 pg (27-31); Mean Corpuscular Volume 94 fL (80-94); Mean Platelet Volume 9.6 um3 (7.4-10.4); Nucleated Red Blood Cells % 0.1; Platelet Count 217 10^3/ul (150-450); Red Blood Count 3.98 10^6/ul (4.00-5.40); Red Cell Distribution Width 13 % (10.5-15); White Blood Count 9.2 10^3/ul (3.5-10.8)
[2017-10-23 01:27] LABS: INR 0.91 (0.77-1.02)
[2017-10-23 01:35] LABS: EGFR Non-African American 42.2 (>60)
[2017-10-23 07:11] VITALS: BP 95/62
--- NOTE | 2017-10-23 08:41 | RAD ---
Indication: Chest pain. Single frontal view of the chest performed at 0127 hours was reviewed. Comparison is made with previous exam dated October 10, 2017. No mediastinal shift is noted. Heart is of normal size and configuration. Lung flores appear clear. IMPRESSION: NO ACTIVE CARDIOPULMONARY DISEASE IS NOTED. R0
== END 2017-10-23 03:05 | disposition home or self-care (01) ==
LOC: ED 00:13
DX: K21.9 Gastro-esophageal reflux disease without esophagitis (principal); R07.89 Other chest pain; Z87.891 Personal history of nicotine dependence
CPT/HCPCS: 36415; 71045; 80053; 83605; 83735; 84484; 85025; 85610; 85730; 93005; 99283; A9270-GY

== ENCOUNTER 2017-10-26 01:20 | Emergency (ER) | payer BC, MEDICARE ==
[2017-10-26] MEDS ORDERED: Albuterol/Ipratropium NEB.SOL* Albuterol 2.5 MG/Ipratropium 0.5 MG 3 ML INH ONE (01:42)
[2017-10-26] MEDS ORDERED: methylPREDNISolone 125 MG* 2 ML VIAL IV ONE (01:43)
--- NOTE | 2017-10-26 01:50 | ED ---
Respiratory - HPI Summary HPI Summary: This is Dante jordan, documenting for attending Kaylee Anand MD. Patient is a 72 y/o M c/o increasingly SOB onset ~1 week ago; current episode lasting for ~4 hours. Assoc. Sx: SOB, productive cough. Denies: Any pain, fever. SOB is worsened by exertion. He reports not smoking for the past 16 years. - History of Current Complaint Chief Complaint: EDShortnessOfBreath Stated Complaint: SOB Hx Obtained From: Patient, Family/Processing Lead Onset/Duration: Gradual Onset, Lasting Weeks, Still Present, Worse Since - 4 hours ago Timing: Intermittent Episodes Lasting: Pain Intensity: 0 Character: Cough (Productive) Aggravating Factor(s): Exertion Alleviating Factor(s): Nothing Associated Signs and Symptoms: SOB - Allergy/Home Medications Allergies/Adverse Reactions: Allergies Allergy/AdvReac Type Severity Reaction Status Date / Time No Known Allergies Allergy Verified 07/11/17 20:17 PMH/Surg Hx/FS Hx/Imm Hx Endocrine/Hematology History: Denies: Hx Anticoagulant Therapy, Hx Diabetes Cardiovascular History: Reports: Hx Hypertension, Other Cardiovascular Problems/ Disorders - HEART CATHERIZATION 12/2012 Denies: Hx Cardiac Arrest Respiratory History: Reports: Hx Sleep Apnea, Other Respiratory Problems/ Disorders - PREVIOUS SMOKER Denies: Hx Asthma, Hx Chronic Obstructive Pulmonary Disease (COPD) Musculoskeletal History: Reports: Hx Arthritis - LEFT KNEE, Hx Back Problems - Back Surgery in the distant past Sensory History: Reports: Hx Contacts or Glasses, Hx Hearing Problem - Hard of hearing Denies: Hx Cataracts, Hx Eye Injury, Hx Eye Prosthesis, Hx Glaucoma, Hx Legally Blind, Hx Macular Degeneration, Hx Vision Problem, Hx Deafness, Hx Hearing Aid, Other Sensory Impairments Opthamlomology History: Reports: Hx Contacts or Glasses Denies: Hx Cataracts, Hx Eye Injury, Hx Eye Prosthesis, Hx Glaucoma, Hx Legally Blind, Hx Macular Degeneration, Hx Vision Problem, Other Sensory Impairments - Surgical History Surgery Procedure, Year, and Place: 1989 BACK SURGERY, [facility]. 12/2012 HEART CATHERIZATION, [facility] – [place]. LEFT KNEE REPLACEMENT Hx Anesthesia Reactions: No Infectious Disease History: No Infectious Disease History: Denies: Traveled Outside the [place] in Last 30 Days - Family History Known Family History: Positive: Cardiac Disease, Hypertension - Social History Occupation: Disabled Lives: With Family Alcohol Use: None Substance Use Type: Reports: None Hx Tobacco Use: Yes Smoking Status (MU): Former Smoker Review of Systems Positive: Other - NEG: any pains. Negative: Fever Positive: Shortness Of Breath, Cough - productive All Other Systems Reviewed And Are Negative: Yes Physical Exam - Summary Physical Exam Summary: VITAL SIGNS: Reviewed. GENERAL: Patient is a well-developed and nourished male who is lying comfortable in the stretcher. Patient is not in any acute respiratory distress. HEAD AND FACE: No signs of trauma. No ecchymosis, hematomas or skull depressions. No sinus tenderness. EYES: PERRLA, EOMI x 2, No injected conjunctiva, no nystagmus. EARS: Hearing grossly intact. Ear canals and tympanic membranes are within normal limits. MOUTH: Oropharynx within normal limits. NECK: Supple, trachea is midline, no adenopathy, no JVD, no carotid bruit, no c- spine tenderness, neck with full ROM. CHEST: Symmetric, no tenderness at palpation LUNGS: diminished breath sounds bilaterally. No wheezing or crackles. CVS: Regular rate and rhythm, S1 and S2 present, no murmurs or gallops appreciated. ABDOMEN: Soft, non-tender. No signs of distention. No rebound no guarding, and no masses palpated. Bowel sounds are normal. EXTREMITIES: FROM in all major joints, no edema, no cyanosis or clubbing. NEURO: Alert and oriented x 3. No acute neurological deficits. Speech is normal and follows commands. SKIN: Dry and warm Triage Information Reviewed: Yes Vital Signs On Initial Exam: Initial Vitals Temp Pulse Resp BP Pulse Ox 98.3 F 81 26 131/81 94 10/26/17 01:22 10/26/17 01:22 10/26/17 01:22 10/26/17 01:22 10/26/17 01:22 Vital Signs Reviewed: Yes Diagnostics - Vital Signs Vital Signs Temp Pulse Resp BP Pulse Ox 10/26/17 01:22 98.3 F 81 26 131/81 94 - Laboratory Result Diagrams: 10/26/17 01:58 10/26/17 01:58 Lab Statement: Any lab studies that have been ordered have been reviewed, and results considered in the medical decision making process. - Radiology CXR Xray Interpretation: No Acute Changes - IMPRESSION: No acute process Radiology Interpretation Completed By: ED Physician - ED physician reviewed this radiology report. - EKG 0159 Cardiac Rate: NL - 78 bpm EKG Rhythm: Sinus Rhythm ST Segment: Normal Ectopy: None EKG Interpretation: nml axis, nml interval Disposition - Diagnoses Provider Diagnoses: Bronchitis, COPD (chronic obstructive pulmonary disease) Discharge - Sign-Out/Discharge Documenting (check all that apply): Patient Departure - Discharge Plan Condition: Stable Disposition: HOME Prescriptions: Albuterol HFA INHALER* [Ventolin HFA Inhaler*] 2 puff INH Q6H PRN #1 mdi PRN Reason: Sob/Wheezing Levofloxacin TAB* [Levaquin TAB*] 750 mg PO DAILY #7 tab predniSONE TAB* [Deltasone TAB*] 50 mg PO DAILY #7 tab Patient Education Materials: Acute Bronchitis (ED), COPD (Chronic Obstructive Pulmonary Disease) (ED) Referrals: Mayo Goodrich MD [Primary Care Provider] - 2 Days Additional Instructions: RETURN TO THE EMERGENCY DEPARTMENT FOR CHANGING OR WORSENING SYMPTOMS. FOLLOW UP WITH PCP IN 1-2 DAYS. - Attestation Statements Document Initiated by Scribe: Yes Documenting Scribe: Dante Jacobs Provider For Whom Scribe is Documenting (Include Credential): Kaylee Anand MD Scribe Attestation: Dante Rojas, scribed for Kaylee Anand MD on 10/26/17 at 0323.
[2017-10-26] MEDS: Albuterol 2.5 MG/3 ML NEB.SOL* (0.083%) INH SCH ×2 (02:04→02:14)
[2017-10-26 02:07] LABS: ABS Basophils 0.1 10^3/ul (0-0.2); ABS Eosinophils 0.5 10^3/ul (0-0.6); ABS Lymphocytes 2.2 10^3/ul (1.0-4.8); ABS Monocytes 0.6 10^3/ul (0-0.8); ABS Neutrophils 5.1 10^3/ul (1.5-7.7); ABS Nucleated RBC 0 10^3/ul; Eosinophil % 5.7 % (0-6); Hematocrit 37 % (42-52); Hemoglobin 12.7 g/dl (14.0-18.0); Lymphocyte % 25.7 % (25-47); Mean Corpuscular HGB Conc 34 g/dl (31-36); Mean Corpuscular Hemoglobin 32 pg (27-31); Mean Corpuscular Volume 94 fL (80-94); Mean Platelet Volume 9.4 um3 (7.4-10.4); Nucleated Red Blood Cells % 0; Platelet Count 222 10^3/ul (150-450); Red Blood Count 3.98 10^6/ul (4.00-5.40); Red Cell Distribution Width 13 % (10.5-15); White Blood Count 8.4 10^3/ul (3.5-10.8)
[2017-10-26 02:15] LABS: INR 0.93 (0.77-1.02)
[2017-10-26 02:26] LABS: EGFR Non-African American 53.9 (>60)
[2017-10-26] MEDS ORDERED: Levofloxacin TAB* 750 MG PO ONE (03:10)
[2017-10-26] MEDS ORDERED: Albuterol HFA INHALER* 8 gm MDI INH ONE (03:34)
[2017-10-26 03:47] VITALS: BP 137/81
[2017-10-26] MEDS ORDERED: Albuterol HFA INHALER* 8 gm MDI INH SCH (07:00)
--- NOTE | 2017-10-26 08:14 | RAD ---
Indication: Shortness of breath. Single frontal view of the chest performed at 0220 hours was reviewed. Comparison is made with previous exam dated October 23, 2017. No mediastinal shift is noted. This cardiomegaly noted. Lung flores are clear. IMPRESSION: NO ACTIVE CARDIOPULMONARY DISEASE IS NOTED.
== END 2017-10-26 03:47 | disposition home or self-care (01) ==
LOC: ED 01:20
DX: J44.9 Chronic obstructive pulmonary disease, unspecified (principal); Z96.652 Presence of left artificial knee joint; Z87.891 Personal history of nicotine dependence
CPT/HCPCS: 36415; 71045; 80053; 83874; 83880; 84484; 85025; 85610; 85730; 86140; 87040; 93005; 96374; 99283; A9270-GY; J2930

== ENCOUNTER 2018-05-22 08:49 | Day surgery (SDC) | payer MEDICARE ==
[~2018-05-22 08:49] MED LIST: Acetaminophen TAB* 325 MG PO PRN; Buffered Lidocaine 1% SYRIN* 1 ML/SYRINGE INTRADERM ONE
[2018-05-22] MEDS ORDERED: Cyclopentolate 1% OPTH.SOL* 2 ML BTL ONE (09:09)
[2018-05-22] MEDS ORDERED: Phenylephrine OPHTH SOL 2.5%* 2 ML ONE (09:09)
[2018-05-22] MEDS ORDERED: Tetracaine 0.5% OPTH.SOL 4 ML* 1 DROP BTL ONE (09:09)
[2018-05-22] MEDS ORDERED: Neomycin/Polymy/Dex OPHTH.OIN* 3.5 GM ONE (09:09)
[2018-05-22] MEDS ORDERED: Lidocaine 1%* 5 ML VIAL ONE (09:09)
[2018-05-22] MEDS ORDERED: Ketorolac 0.5% OPHTH (NF) 0.5 % 5 ML BTL ONE (09:09)
[2018-05-22] MEDS ORDERED: Tropicamide 1% OPTH.SOL* BTL ONE (09:09)
[2018-05-22] MEDS ORDERED: fentaNYL* 50 MCG/ML 2 ML VIAL (100 MCG VIAL) ONE (09:44)
[2018-05-22] MEDS ORDERED: Midazolam* 1 MG/ML 2 ML VIAL (2 MG) ONE (09:44)
[2018-05-22 11:04] VITALS: BP 133/70
--- NOTE | 2018-05-22 11:20 | OP ---
DATE OF OPERATION: 05/22/18 [facility] DATE OF : 47 SURGEON: Dr. Tahir Leiva. [employer]UM[employer] SUPERVISOR: None. ANESTHESIA: Topical with intravenous sedation. PRE-OP DIAGNOSIS: Cataract, right eye. POST-OP DIAGNOSIS: Cataract, right eye. OPERATIVE PROCEDURE: Phacoemulsification and cataract extraction with posterior chamber intraocular lens implant, right eye. COMPLICATIONS: None. BLOOD LOSS: None. DESCRIPTION OF PROCEDURE: The patient was brought to the operating room and received a small amount of intravenous sedation. A drop of tetracaine was placed in his right eye. He was prepped and draped in the usual sterile fashion for ophthalmic surgery and attention was directed to the right eye where a speculum was placed. A paracentesis was created at the 11 o'clock position and 0.1 cc of 1 percent preservative-free Lidocaine was injected into the anterior chamber followed by DisCoVisc. The eye was digitally stabilized while a 2.75 mm keratome was used to create a triplanar clear corneal incision at the 9 o'clock position. A continuous curvilinear capsulorrhexis was created with a cystotome and Utrata forceps. BSS on a cannula was used to hydrodissect the lens from the capsule. Phacoemulsification was performed in a divide-and- conquer technique to create four fragments which were removed. Residual cortical material was removed with irrigation and aspiration. DisCoVisc was used to inflate the capsular bag and an AU00T0 22.0 diopter lens was folded and inserted into the capsular bag. DisCoVisc was removed using irrigation and aspiration. BSS on a cannula was used to hydrate the corneal stroma and seal the wound. At the end of the case the pupil was round and the lens was centered. The eye was of normal pressure and the wound was water tight. The speculum was removed and topical Maxitrol ointment was placed on the surface of the eye. The eye was closed, patched and shielded and the patient was sent to the recovery room in stable condition with post operative instructions and follow-up appointment given. [id number]/[facility] #: [id number] AILYN
== END 2018-05-22 10:50 | disposition home or self-care (01) ==
LOC: OREAST 08:49
PROVIDERS: ATTEND Ophthalmology
DX: H25.041 Posterior subcapsular polar age-related cataract, right eye (principal); I10 Essential (primary) hypertension; I25.10 Atherosclerotic heart disease of native coronary artery without angina pectoris; J44.9 Chronic obstructive pulmonary disease, unspecified; Z87.891 Personal history of nicotine dependence
CPT/HCPCS: A9270-GY; J2250; J3010; V2632

== ENCOUNTER 2018-05-29 08:21 | Day surgery (SDC) | payer MEDICARE ==
[2018-05-29] MEDS ORDERED: fentaNYL* 50 MCG/ML 2 ML VIAL (100 MCG VIAL) ONE (09:34)
[2018-05-29] MEDS ORDERED: Midazolam* 1 MG/ML 2 ML VIAL (2 MG) ONE (09:34)
[2018-05-29] MEDS ORDERED: Lidocaine 1%* 5 ML VIAL ONE (10:53)
[2018-05-29] MEDS ORDERED: Phenylephrine OPHTH SOL 2.5%* 2 ML ONE (10:53)
[2018-05-29] MEDS ORDERED: Tropicamide 1% OPTH.SOL* BTL ONE (10:53)
[2018-05-29] MEDS ORDERED: Neomycin/Polymy/Dex OPHTH.OIN* 3.5 GM ONE (10:53)
[2018-05-29] MEDS ORDERED: Tetracaine 0.5% OPTH.SOL 4 ML* 1 DROP BTL ONE (10:53)
[2018-05-29] MEDS ORDERED: Cyclopentolate 1% OPTH.SOL* 2 ML BTL ONE (10:53)
[2018-05-29] MEDS ORDERED: Ketorolac 0.5% OPHTH (NF) 0.5 % 5 ML BTL ONE (10:53)
[2018-05-29] MEDS ORDERED: Carbachol 0.01% OPH.SOL* 1.5 ML OPHTH.SOLN ONE (10:54)
[2018-05-29] MEDS ORDERED: Phenylephr/Ketorolac 1%/0.3% OPH DROP BTL ONE (10:54)
[2018-05-29 11:19] VITALS: BP 127/75
--- NOTE | 2018-05-29 13:32 | OP ---
DATE OF OPERATION: 05/29/18 - [facility] DATE OF : 47 SURGEON: Tahir Leiva MD [employer] METALSM[employer]: None. ANESTHESIA: Topical with intravenous sedation. PRE-OP DIAGNOSIS: Pseudoexfoliation cataract, left eye. POST-OP DIAGNOSIS: Pseudoexfoliation cataract, left eye. OPERATIVE PROCEDURE: Phacoemulsification and cataract extraction with posterior chamber intraocular lens implant and anterior vitrectomy. COMPLICATIONS: Posterior capsular tear. DESCRIPTION OF PROCEDURE: The patient was brought to the operating room and received intravenous sedation. A drop of tetracaine was placed in his left eye. The patient was prepped and draped in the usual sterile fashion for ophthalmic surgery. Attention was directed to the left eye where a speculum was placed. It was noted that the patient's pupil only dilated to appropriately 3.5 mm and there was pseudoexfoliation material on the surface of the lens. A paracentesis was created at the 5 o'clock position and 0.1 cc of 1% preservative-free lidocaine was injected into the anterior chamber followed by DisCoVisc. The eye was digitally stabilized while a 2.75-mm keratome was used to create a triplanar clear corneal incision at the 3 o'clock position. DisCoVisc was used to maintain the pupil size of approximately 4 mm while a continuous curvilinear capsulorrhexis was created without any problems. BSS on a cannula was used to hydrodissect the lens from the capsule. Phacoemulsification was performed in a uwvdry-[id number]-uipraeg technique to create 4 fragments, which were removed. Residual cortical material was removed with irrigation and aspiration. At this point, the capsule was intact and there was no residual lens material. DisCoVisc was used to inflate the capsule and an AU00T0 21.5 diopter lens was inserted into the capsular bag. DisCoVisc was partially removed using irrigation and aspiration when it was noted that the vitreous was presenting beneath the lens. At this point, DisCoVisc was used to tamponade the vitreous and the irrigation and aspiration instruments were removed. A second paracentesis was created and a bimanual anterior vitrectomy was performed to remove the vitreous from the plane of the lens, in front of the lens, and behind the lens. The capsular support remained adequate. Irrigation and aspiration was performed to remove viscoelastic from the eye. Miostat was introduced to create a small round pupil showing there was no vitreous in the anterior chamber. BSS on a cannula was used to hydrate the corneal stroma and seal the wound. At the end of the case, the pupil was round and the lens was centered and stable. The eye pressure appeared normal and the wound was water tight. The speculum was removed and topical Maxitrol ointment was placed on the surface of the eye. The eye was closed, patched and shielded , and the patient was sent to the recovery room in stable condition with postoperative instructions and followup appointment given. [id number]/[facility] #: [id number] AILYN
== END 2018-05-29 11:04 | disposition home or self-care (01) ==
LOC: OREAST 08:21
PROVIDERS: ATTEND Ophthalmology
DX: H25.042 Posterior subcapsular polar age-related cataract, left eye (principal); I25.10 Atherosclerotic heart disease of native coronary artery without angina pectoris; I10 Essential (primary) hypertension; J44.9 Chronic obstructive pulmonary disease, unspecified
CPT/HCPCS: A9270-GY; C9447; J2250; J3010; V2632

== ENCOUNTER 2018-06-10 15:58 | Emergency (ER) | payer MEDICARE ==
[2018-06-10 16:09] VITALS: BP 137/86
--- NOTE | 2018-06-10 16:14 | UC ---
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" and awoke this morning with pain in right anterior collarbone and neck---pain ful to move---n/m/s intact distally---hurts to touch took hydrocodone and flexeril a few hours ago with some relief of pain - History of Current Complaint Chief Complaint: UCGeneralIllness Stated Complaint: neck pAIN Time Seen by Provider: 06/10/18 16:02 Hx Obtained From: Patient Onset/Duration Of Injury/Symptoms: Days - 1 Mechanism Of Injury: No Known Trauma Timing: Constant Onset/Duration: Sudden Onset Pain Intensity: 7 Pain Scale Used: 0-10 Numeric Location: Discrete At: - right anterior shoulder and neck pain Character: Aching, Stiff, Spasmotic Aggravating Factors: Movement Alleviating Factors: Other: - flexeril and hydrocodone Associated Signs & Symptoms: Positive: Negative - Allergies/Home Medications Allergies/Adverse Reactions: Allergies Allergy/AdvReac Type Severity Reaction Status Date / Time No Known Allergies Allergy Verified 06/10/18 16:09 PMH/Surg Hx/FS Hx/Imm Hx Previously Healthy: No Cardiovascular History: Cardiac Disease, Hypertension Respiratory History: COPD Other History Of: Negative For: Anticoagulant Therapy - Surgical History Surgical History: Yes Surgery Procedure, Year, and Place: 1996 BACK SURGERY, [facility]. 12/2012 [place] [facility] [place] LEFT [place]AC[place] [facility] [place] Bilateral cataracts - Family History Known Family History: Positive: Cardiac Disease, Hypertension - Social History Occupation: Retired Lives: With Family Alcohol Use: None Substance Use Type: None Smoking Status (MU): Former Smoker Type: Cigarettes Amount Used/How Often: 1PPD Have You Smoked in the Last Year: No When Did the Patient Quit Smoking/Using Tobacco: 2002 Household Exposure Type: Cigarettes - Immunization History Most Recent Influenza Vaccination: DOES NOT GET Most Recent Tetanus Shot: UNKNOWN Most Recent Pneumonia Vaccination: NONE Review of Systems All Other Systems Reviewed And Are Negative: Yes Constitutional: Positive: Negative Skin: Positive: Negative Eyes: Positive: Negative ENT: Positive: Negative Respiratory: Positive: Negative Cardiovascular: Positive: Negative Gastrointestinal: Positive: Negative Genitourinary: Positive: Negative Motor: Positive: Decreased ROM Neurovascular: Positive: Negative Musculoskeletal: Positive: Negative Neurological: Positive: Negative Psychological: Positive: Negative Is Patient Immunocompromised?: No Physical Exam Triage Information Reviewed: Yes Appearance: Well-Appearing, Pain Distress, Obese Vital Signs: Initial Vital Signs Temp 99.6 F 06/10/18 16:02 Pulse 88 06/10/18 16:02 Resp 22 06/10/18 16:02 BP 137/86 06/10/18 16:02 Pulse Ox 95 06/10/18 16:02 Vital Signs Reviewed: Yes Eye Exam: Normal Eyes: Positive: Conjunctiva Clear ENT Exam: Normal ENT: Positive: Normal ENT inspection, Hearing grossly normal. Negative: Trismus , Muffled voice, Hoarse voice Dental Exam: Normal Neck exam: Normal Neck: Positive: Supple, Nontender, No Lymphadenopathy Respiratory Exam: Normal Respiratory: Positive: Chest non-tender, No respiratory distress, No accessory muscle use Cardiovascular Exam: Normal Cardiovascular: Positive: RRR, Pulses Normal, Brisk Capillary Refill Musculoskeletal Exam: Normal Musculoskeletal: Positive: Strength Intact, No Edema, ROM Limited @ - neck Neurological Exam: Normal Neurological: Positive: Alert, Muscle Tone Normal Psychological Exam: Normal Skin Exam: Normal Re-Evaluation - Re-Evaluation First Eval Change: Improved - pain decreased movement increased Neck Pain Course/Dx - Course Course Of Treatment: continue pain med as previously rx add flexeril follow with pcp - Differential Dx/Diagnosis Provider Diagnosis: Neck pain on right side Discharge - Sign-Out/Discharge Documenting (check all that apply): Patient Departure All imaging exams completed and their final reports reviewed: No Studies - Discharge Plan Condition: Stable Disposition: HOME Prescriptions: Cyclobenzaprine TAB* [Flexeril 10 MG TAB*] 10 mg PO TID PRN #15 tab MDD 3 PRN Reason: muscle spasm Patient Education Materials: Spasmodic Torticollis (ED), Acute Neck Pain (ED) Referrals: Mayo Goodrich MD [Primary Care Provider] - 3 Days - Billing Disposition and Condition Condition: STABLE Disposition: Home
[2018-06-10] MEDS ORDERED: Ketorolac INJ* 30 MG/ML 1 ML VIAL IM ONE (16:21)
[2018-06-10] MEDS ORDERED: HYDROcodone/ACETAMIN 5-325 MG* 1 TAB PO ONE (16:21)
[2018-06-10] MEDS ORDERED: Cyclobenzaprine TAB* 10 MG PO ONE (16:52)
== END 2018-06-10 17:00 | disposition home or self-care (01) ==
LOC: UCEAST 15:58
DX: M54.2 Cervicalgia (principal); I11.9 Hypertensive heart disease without heart failure; J44.9 Chronic obstructive pulmonary disease, unspecified; Z96.652 Presence of left artificial knee joint; Z87.891 Personal history of nicotine dependence
CPT/HCPCS: 96372; 99212; A9270-GY; G0463; J1885

== ENCOUNTER 2018-08-05 00:15 | Emergency (ER) | payer MEDICARE ==
[2018-08-05] MEDS ORDERED: Albuterol/Ipratropium NEB.SOL* Albuterol 2.5 MG/Ipratropium 0.5 MG 3 ML INH ONE (00:41)
--- NOTE | 2018-08-05 00:41 | ED ---
Shortness of Breath - HPI Summary HPI Summary: This patient is a 73 year old M presenting to [facility] with a chief complaint of SOB while laying down roughly 30 minutes ago. He states, I feel like Im suffocating when he lays down. He was unable to fall asleep this evening. Reports chronic lower extremity swelling and productive cough. Denies any pain. - History of Current Complaint Chief Complaint: EDShortnessOfBreath Time Seen by Provider: 08/05/18 00:24 Hx Obtained From: Patient Onset/Duration: Lasting Hours Dyspnea At: [facility] Aggravating Factors: Recumbent Position Alleviating Factors: Upright Position Associated Signs & Symptoms: Cough (Productive) Related History: Obesity - Allergy/Home Medications Allergies/Adverse Reactions: Allergies Allergy/AdvReac Type Severity Reaction Status Date / Time No Known Allergies Allergy Verified 08/05/18 00:56 PMH/Surg Hx/FS Hx/Imm Hx Endocrine/Hematology History: Denies: Hx Anticoagulant Therapy, Hx Diabetes Cardiovascular History: Reports: Hx Hypertension - ON DAILY MEDS STATES WELL CONTROLLED, Other Cardiovascular Problems/Disorders - HEART CATHERIZATION 2012 Denies: Hx Cardiac Arrest Respiratory History: Reports: Hx Sleep Apnea - NO CPAP, Other Respiratory Problems/Disorders - PREVIOUS SMOKER Denies: Hx Asthma, Hx Chronic Obstructive Pulmonary Disease (COPD) Musculoskeletal History: Reports: Hx Arthritis - LEFT KNEE, Hx Back Problems - Back Surgery in the distant past Sensory History: Reports: Hx Cataracts - BILATERAL, Hx Contacts or Glasses, Hx Hearing Problem - Hard of hearing Denies: Hx Eye Injury, Hx Eye Prosthesis, Hx Glaucoma, Hx Legally Blind, Hx Macular Degeneration, Hx Vision Problem, Hx Deafness, Hx Hearing Aid, Other Sensory Impairments Opthamlomology History: Reports: Hx Cataracts - BILATERAL, Hx Contacts or Glasses Denies: Hx Eye Injury, Hx Eye Prosthesis, Hx Glaucoma, Hx Legally Blind, Hx Macular Degeneration, Hx Vision Problem, Other Sensory Impairments - Surgical History Surgery Procedure, Year, and Place: 1996 BACK SURGERY, [facility]. 12/2012 [place], [facility] [place]. [place] LEFT [place]PLAC[place] [facility] [place] Bilateral cataracts Hx Anesthesia Reactions: No Infectious Disease History: No Infectious Disease History: Denies: Traveled Outside the [place] in Last 30 Days - Family History Known Family History: Positive: Cardiac Disease, Hypertension - Social History Alcohol Use: None Substance Use Type: Reports: None Hx Tobacco Use: Yes Smoking Status (MU): Former Smoker Type: Cigarettes Amount Used/How Often: 1PPD Have You Smoked in the Last Year: No Review of Systems Positive: Shortness Of Breath, Cough Positive: Edema All Other Systems Reviewed And Are Negative: Yes Physical Exam - Summary Physical Exam Summary: VITAL SIGNS: Reviewed. GENERAL: Patient is a morbidly obese male who is lying comfortable in the stretcher. Patient is not in any acute respiratory distress. HEAD AND FACE: No signs of trauma. No ecchymosis, hematomas or skull depressions. No sinus tenderness. EYES: PERRLA, EOMI x 2, No injected conjunctiva, no nystagmus. EARS: Hearing grossly intact. Ear canals and tympanic membranes are within normal limits. MOUTH: Oropharynx within normal limits. NECK: Supple, trachea is midline, no adenopathy, no JVD, no carotid bruit, no c- spine tenderness, neck with full ROM CHEST: Symmetric, no tenderness at palpation LUNGS: Clear to auscultation bilaterally. No wheezing or crackles. Decreased breath sounds bilaterally CVS: Regular rate and rhythm, S1 and S2 present, no murmurs or gallops appreciated. ABDOMEN: Soft, non-tender. No signs of distention. No rebound no guarding, and no masses palpated. Bowel sounds are normal. EXTREMITIES: FROM in all major joints, no cyanosis or clubbing. +1 bilateral pitting edema NEURO: Alert and oriented x 3. No acute neurological deficits. Speech is normal and follows commands. SKIN: Dry and warm Triage Information Reviewed: Yes Vital Signs On Initial Exam: Initial Vitals Temp Pulse Resp BP Pulse Ox 97.4 F 82 26 155/87 92 08/05/18 00:16 08/05/18 00:16 08/05/18 00:16 08/05/18 00:16 08/05/18 00:16 Vital Signs Reviewed: Yes Diagnostics - Vital Signs Vital Signs Temp Pulse Resp BP Pulse Ox 08/05/18 00:16 97.4 F 82 26 155/87 92 - Laboratory Result Diagrams: 08/05/18 00:47 08/05/18 00:47 Lab Statement: Any lab studies that have been ordered have been reviewed, and results considered in the medical decision making process. - CT Chest CT CT Interpretation Completed By: Radiologist Summary of CT Findings: 1. No pulmonary emboli. 2. Right middle lobe pulmonary nodule showing greater than 2 year stability. 3. Severe hepatic steatosis (>28 % fat fraction). ED Physician has reviewed this report. - EKG 0046 Cardiac Rate: NL - 85 BPM EKG Rhythm: Sinus Rhythm Ectopy: PVCs Course/Dx - Course Course Of Treatment: 73 year old M presenting to [facility] with a chief complaint of SOB while laying down roughly 30 minutes ago. Reports chronic lower extremity edema and a productive cough. Bloodwork obtained. Patient is given 324mg ASA and nebulizer treatment. Chest CT reveals, as per radiologist " 1. No pulmonary emboli. 2. Right middle lobe pulmonary nodule showing greater than 2 year stability. 3. Severe hepatic steatosis (>28% fat fraction). " Bloodwork is obtained. Patient is given 50mg Prednisone, 324mg ASA, a nebulizer treatment , and albuterol inhaler. Results discussed with patient. Patient will be discharged home with a prescription for prednisone and an albuterol inhaler and is instructed to follow up with his primary doctor. - Diagnoses Provider Diagnoses: Asthma Discharge - Sign-Out/Discharge Documenting (check all that apply): Patient Departure - discharge Patient Received Moderate/Deep Sedation with Procedure: No - Discharge Plan Condition: Stable Disposition: HOME Prescriptions: Albuterol HFA INHALER* [Ventolin HFA Inhaler*] 2 puff INH Q6H PRN #1 mdi PRN Reason: Shortness Of Breath predniSONE TAB* [Deltasone TAB*] 50 mg PO DAILY #5 tab Patient Education Materials: Shortness of Breath (ED) Referrals: Mayo Goodrich MD [Primary Care Provider] - 2 Days Additional Instructions: RETURN TO THE EMERGENCY DEPARTMENT FOR CHANGING OR WORSENING SYMPTOMS. - Billing Disposition and Condition Condition: STABLE Disposition: Home - Attestation Statements Scribe Documentation Reviewed: Yes
[2018-08-05 00:54] LABS: ABS Basophils 0.1 10^3/ul (0-0.2); ABS Eosinophils 0.3 10^3/ul (0-0.6); ABS Lymphocytes 1.8 10^3/ul (1.0-4.8); ABS Monocytes 0.5 10^3/ul (0-0.8); ABS Neutrophils 4.1 10^3/ul (1.5-7.7); Eosinophil % 3.9 %; Hematocrit 38 % (42-52); Hemoglobin 12.7 g/dL (14.0-18.0); Lymphocyte % 26.8 %; Mean Corpuscular HGB Conc 34 g/dL (31-36); Mean Corpuscular Hemoglobin 32 pg (27-31); Mean Corpuscular Volume 94 fL (80-94); Mean Platelet Volume 9.6 fL (7.4-10.4); Platelet Count 196 10^3/uL (150-450); Red Blood Count 4.03 10^6 /uL (4.18-5.48); Red Cell Distribution Width 14 % (10-15); White Blood Count 6.8 10^3/uL (3.5-10.8)
[2018-08-05 01:03] LABS: INR 0.97 (0.82-1.09)
[2018-08-05 01:12] LABS: ALT 15 U/L (7-52); AST 16 U/L (13-39); Albumin 3.9 g/dL (3.2-5.2); Albumin/Globulin Ratio 1.1 (1-3); Alkaline Phosphatase 53 U/L (34-104); Anion Gap 7 mmol/L (2-11); BUN/Creatinine Ratio 24.6 (8-20); Blood Urea Nitrogen 32 mg/dL (6-24); C Reactive Protein 12.19 mg/L (<8.01); CO2 Carbon Dioxide 27 mmol/L (22-32); Calcium 9.1 mg/dL (8.6-10.3); Chloride 102 mmol/L (101-111); EGFR African American 65.7 (>60); EGFR Non-African American 54.3 (>60); Globulin 3.7 g/dL (2-4); Glucose 170 mg/dL (70-100); Potassium 3.5 mmol/L (3.5-5.0); Sodium 136 mmol/L (135-145); Total Protein 7.6 g/dL (6.4-8.9)
[2018-08-05] MEDS ORDERED: Aspirin 81 mg CHEW TAB* 81 MG TAB.CHEW PO ONE (01:19)
[2018-08-05] MEDS ORDERED: Iodixanol* (CONTRAST) 320 MG/ML 100 ML SDV IV ONE (01:41)
[2018-08-05] MEDS: Albuterol 2.5 MG/3 ML NEB.SOL* (0.083%) INH SCH ×2 (01:57→02:10)
[2018-08-05] MEDS ORDERED: predniSONE TAB* 50 MG PO ONE (04:53)
[2018-08-05 05:20] VITALS: BP 125/85
[2018-08-05] MEDS ORDERED: Albuterol HFA INHALER* 8 gm MDI INH SCH (07:00)
== END 2018-08-05 05:19 | disposition home or self-care (01) ==
LOC: ED 00:15
DX: J45.909 Unspecified asthma, uncomplicated (principal); R06.02 Shortness of breath; R05 Cough; I10 Essential (primary) hypertension; Z95.5 Presence of coronary angioplasty implant and graft; Z87.891 Personal history of nicotine dependence; R60.0 Localized edema
CPT/HCPCS: 36415; 71045; 71275; 80053; 83880; 84484; 85025; 85610; 85730; 86140; 93005; 99283; A9270-GY; J7512; Q9967

== ENCOUNTER 2018-10-07 05:37 | Emergency (ER) | payer MEDICARE ==
[2018-10-07] MEDS ORDERED: Albuterol 2.5 MG/3 ML NEB.SOL* (0.083%) INH ONE (06:01)
[2018-10-07 06:22] LABS: ABS Eosinophils 0.3 10^3/ul (0-0.6); ABS Lymphocytes 1.3 10^3/ul (1.0-4.8); ABS Monocytes 0.4 10^3/ul (0-0.8); ABS Neutrophils 4.9 10^3/ul (1.5-7.7); Eosinophil % 4.3 %; Hematocrit 34 % (42-52); Hemoglobin 11.5 g/dL (14.0-18.0); Mean Corpuscular HGB Conc 33 g/dL (31-36); Mean Corpuscular Hemoglobin 32 pg (27-31); Mean Corpuscular Volume 95 fL (80-94); Mean Platelet Volume 9.4 fL (7.4-10.4); Platelet Count 208 10^3/uL (150-450); Red Blood Count 3.63 10^6 /uL (4.18-5.48); Red Cell Distribution Width 14 % (10-15)
--- NOTE | 2018-10-07 06:29 | ED ---
Shortness of Breath - HPI Summary HPI Summary: Pt. is a 73 y.o who presents emergency department for shortness of breath times several days. Symptoms are worse with activities and lying down. Patient has a history of obesity, buttermaker continuous churn smoking, hypertension and diabetes. Patient's son states that he has symptoms gets worse with activity such as mowing the grass. Patient believes he has seasonal allergies. Patient was seen in the ER a few months ago for similar symptoms and was sent home with a course of steroids and inhaler which patient states made him feel better. Patient states he does not have any diagnosed lung problems. He denies fever, chest pain, leg swelling, productive cough, abdominal pain. Symptoms are moderate in severity. No current modifying factors. - History of Current Complaint Chief Complaint: EDShortnessOfBreath Time Seen by Provider: 10/07/18 05:52 Hx Obtained From: Patient, Family/Tin Roofer - Allergy/Home Medications Allergies/Adverse Reactions: Allergies Allergy/AdvReac Type Severity Reaction Status Date / Time No Known Allergies Allergy Verified 10/07/18 05:40 Home Medications: Home Medications Lisinopril 20 mg PO DAILY 10/07/18 [History Confirmed 10/07/18] Metformin HCl 500 mg PO BID 10/07/18 [History Confirmed 10/07/18] PMH/Surg Hx/FS Hx/Imm Hx Previously Healthy: Yes Endocrine/Hematology History: Denies: Hx Anticoagulant Therapy, Hx Diabetes Cardiovascular History: Reports: Hx Hypertension - ON DAILY MEDS STATES WELL CONTROLLED, Other Cardiovascular Problems/Disorders - HEART CATHERIZATION 2012 Denies: Hx Cardiac Arrest Respiratory History: Reports: Hx Sleep Apnea - NO CPAP, Other Respiratory Problems/Disorders - PREVIOUS SMOKER Denies: Hx Asthma, Hx Chronic Obstructive Pulmonary Disease (COPD) History: Denies: Hx Renal Disease Musculoskeletal History: Reports: Hx Arthritis - LEFT KNEE, Hx Back Problems - Back Surgery in the distant past Sensory History: Reports: Hx Cataracts - BILATERAL, Hx Contacts or Glasses, Hx Hearing Problem - Hard of hearing Denies: Hx Eye Injury, Hx Eye Prosthesis, Hx Glaucoma, Hx Legally Blind, Hx Macular Degeneration, Hx Vision Problem, Hx Deafness, Hx Hearing Aid, Other Sensory Impairments Opthamlomology History: Reports: Hx Cataracts - BILATERAL, Hx Contacts or Glasses Denies: Hx Eye Injury, Hx Eye Prosthesis, Hx Glaucoma, Hx Legally Blind, Hx Macular Degeneration, Hx Vision Problem, Other Sensory Impairments - Surgical History Surgery Procedure, Year, and Place: 1996 BACK SURGERY, [facility]. 12/2012 HEART CATHERIZATION, [facility] [place]. 2016 LEFT KNEE REPLACEMENT [facility] [place]. Bilateral cataracts Hx Anesthesia Reactions: No Infectious Disease History: No Infectious Disease History: Denies: Traveled Outside the [place] in Last 30 Days - Family History Known Family History: Positive: Cardiac Disease, Hypertension, Non-Contributory - Social History Occupation: Retired Lives: With Family Alcohol Use: None Substance Use Type: Reports: None Hx Tobacco Use: Yes Smoking Status (MU): Former Smoker Type: Cigarettes Amount Used/How Often: 1PPD Have You Smoked in the Last Year: No Review of Systems Constitutional: Negative Negative: Fever, Chills Positive: Sore Throat, Nasal Discharge Cardiovascular: Negative Negative: Palpitations, Chest Pain Positive: Shortness Of Breath. Negative: Cough Gastrointestinal: Negative Negative: Abdominal Pain, Vomiting, Diarrhea, Nausea Musculoskeletal: Negative Skin: Negative Neurological: Negative All Other Systems Reviewed And Are Negative: Yes Physical Exam Triage Information Reviewed: Yes Vital Signs On Initial Exam: Initial Vitals Temp Pulse Resp BP Pulse Ox 97.3 F 88 20 128/99 96 10/07/18 05:38 10/07/18 05:38 10/07/18 05:38 10/07/18 05:38 10/07/18 05:38 Vital Signs Reviewed: Yes Appearance: Positive: Well-Appearing - Pt. sitting on side of bed in NAD. Morbidly obese. Family member present. Pt. speaking in full sentences without difficulty. Skin: Positive: Warm, Dry Head/Face: Positive: Normal Head/Face Inspection Eyes: Positive: Normal, EOMI, MACEY ENT: Positive: Other - Nasal congestion. Oral pharynx injected with mild tonsilar edema and erythema on the right. Uvula midline. Neck: Positive: Supple Respiratory/Lung Sounds: Positive: Other - Diminished breath sounds throughout.. Negative: Stridor, Tracheal Deviation Cardiovascular: Positive: Normal, RRR Musculoskeletal: Positive: Normal, Strength/ROM Intact. Negative: Edema Left, Edema Right Neurological: Positive: Normal, CN Intact II-III Psychiatric: Positive: Affect/Mood Appropriate Diagnostics - Vital Signs Vital Signs Temp Pulse Resp BP Pulse Ox 10/07/18 06:14 81 16 98 10/07/18 06:00 80 14 93 10/07/18 05:55 77 20 113/68 94 10/07/18 05:53 86 17 94 10/07/18 05:38 97.3 F 88 20 128/99 96 - Laboratory Lab Results: Lab Results 10/07/18 Range/Units 06:13 WBC 7.0 (3.5-10.8) 10^3/uL RBC 3.63 L (4.18-5.48) 10^6 /uL Hgb 11.5 L (14.0-18.0) g/dL Hct 34 L (42-52) % MCV 95 H (80-94) fL MCH 32 H (27-31) pg MCHC 33 (31-36) g/dL RDW 14 (10-15) % Plt Count 208 (150-450) 10^3/uL MPV 9.4 (7.4-10.4) fL Neut % (Auto) 70.0 % Lymph % (Auto) 19.0 % Wharton % (Auto) 6.0 % Eos % (Auto) 4.3 % Baso % (Auto) 0.7 % Absolute Neuts (auto) 4.9 (1.5-7.7) 10^3/ul Absolute Lymphs (auto) 1.3 (1.0-4.8) 10^3/ul Absolute Monos (auto) 0.4 (0-0.8) 10^3/ul Absolute Eos (auto) 0.3 (0-0.6) 10^3/ul Absolute Basos (auto) 0.0 (0-0.2) 10^3/ul Absolute Nucleated RBC 0.0 10^3/ul Nucleated RBC % 0.0 Result Diagrams: 10/07/18 06:13 10/07/18 06:13 Lab Statement: Any lab studies that have been ordered have been reviewed, and results considered in the medical decision making process. Course/Dx - Course Course Of Treatment: Patient presenting with shortness of breath. He is afebrile. Oxygen saturation low 90s. No signs of respiratory distress. EKG done at 79bpm, normal axis, ventricular bigeminy, no ST elevation or depression. Patient notes that he has history of arrhythmia and is seeing cardiology in the past. CBC is unremarkable. CMP shows normal renal function and mildly elevated BNP at 226. Chest x-ray per radiology shows pulmonary interstitial edema. On reexamination patient states he is feeling much better. On re-auscultation patient is moving air better. He ambulated around the ER with pulse ox and oxygen saturation remained in the low 90s patient was not dyspneic. Suspect patient has underlying COPD and questionable mild CHF. Case was discussed with Dr. Aldana who recommended placing patient on a few days of Lasix as well as treating for likely COPD exacerbation. Results were discussed with patient and son. Explained to pt. he will need further workup from family doctors including likely echocardiogram and pulmonary function studies. Patient notes he stopped smoking but states his family members smoke daily. Patient to call family doctor Monday for close follow-up appointment. Return to ER if symptoms change or worsen. Patient and son understand and agree with plan. - Diagnoses Differential Diagnosis/HQI/PQRI: Positive: Airway Obstruction, Asthma, Bronchitis, CHF, COPD Exacerbation, TN, Pneumonia Provider Diagnoses: Shortness of breath Discharge - Sign-Out/Discharge Documenting (check all that apply): Patient Departure Patient Received Moderate/Deep Sedation with Procedure: No - Discharge Plan Condition: Improved Disposition: HOME Prescriptions: Albuterol HFA INHALER* [Ventolin HFA Inhaler*] 2 puff INH Q4H PRN #1 mdi PRN Reason: Shortness Of Breath Furosemide TAB* [Lasix TAB*] 20 mg PO DAILY #5 tab predniSONE TAB* [Deltasone 20 MG TAB*] 40 mg PO DAILY #10 tab Patient Education Materials: Shortness of Breath (ED) Referrals: Mayo Goodrich MD [Primary Care Provider] - Additional Instructions: Call your PCP on Monday for a close follow up appointment for further lung and heart testing and treatment Take medication as directed Return to ER if symptoms change or worsen - Billing Disposition and Condition Condition: IMPROVED Disposition: Home
[2018-10-07 06:39] LABS: Albumin 4.1 g/dL (3.2-5.2); Albumin/Globulin Ratio 1.4 (1-3); BUN/Creatinine Ratio 34.8 (8-20); C Reactive Protein 7.85 mg/L (<8.01); Calcium 8.6 mg/dL (8.6-10.3); EGFR African American 97.9 (>60); EGFR Non-African American 80.9 (>60); Potassium 4.2 mmol/L (3.5-5.0); Total Bilirubin 0.4 mg/dL (0.2-1.0); Total Protein 7.1 g/dL (6.4-8.9)
[2018-10-07 08:08] VITALS: BP 115/74
== END 2018-10-07 08:07 | disposition home or self-care (01) ==
LOC: ED 05:37
DX: R06.02 Shortness of breath (principal); J81.1 Chronic pulmonary edema; R00.8 Other abnormalities of heart beat; E11.9 Type 2 diabetes mellitus without complications; Z79.84 Long term (current) use of oral hypoglycemic drugs; I10 Essential (primary) hypertension; Z96.652 Presence of left artificial knee joint; Z87.891 Personal history of nicotine dependence
CPT/HCPCS: 36415; 71046; 80053; 83605; 83880; 84484; 85025; 86140; 93005; 99283

== ENCOUNTER 2018-12-08 13:07 | Emergency (ER) | payer MEDICARE ==
--- OUTSIDE RECORDS SUMMARY | 2018-12-08 13:14 | XMS REPORT | Continuity of Care Document ---
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 Operator [facility] Care Team Information Yoker Machine Operator [phone] Problems Active Problems Provider Date Essential hypertension Harjeet Allen, OD Onset: 04/02/2018 Social History Type Date Description Comments Sex Unknown ETOH Use Denies alcohol use Tobacco Use Start: Unknown End: Patient is a former smoker quit 18 years ago Unknown Smoking Status Reviewed: 12/05/18 Patient is a former smoker quit 18 years ago Allergies, Adverse Reactions, Alerts Description No Known Drug Allergies Medications Active Medications SIG Qnty Indications Ordering Provider Date Hydrochlorothiazide Mayo Goodrich MD 25mg Tablets Hydrocodone Mayo Goodrich MD Bitartrate/Acetaminophen 5-300mg Tablets Lisinopril Mayo Goodrich MD 40mg Tablets Levofloxacin Unknown 750mg Tablets Prednisone Unknown 50mg Tablets Pantoprazole Sodium Unknown 40mg Tablets DR Metformin HCL Mayo Goodrich MD 500mg Tablets Immunizations Description No Information Available Vital Signs Date Vital Result Comment 07/05/2018 10:28am Intraocular Pressure Right Eye 17 mmHg Intraocular Pressure Left Eye 20 mmHg 06/05/2018 10:22am Intraocular Pressure Right Eye 21 mmHg Intraocular Pressure Left Eye 16 mmHg Results Description No Information Available Procedures Description No Information Available Medical Devices Description No Information Available Encounters Description No Information Available Assessments Date Code Description Provider 12/05/2018 H40.013 Open angle with borderline findings, low risk, Harjeet Allen, OD bilateral 07/05/2018 H40.053 Ocular hypertension, bilateral Harjeet Courtneyon, OD 07/05/2018 Z96.1 Presence of intraocular lens Harjeet Allen, OD Plan of Treatment 12/05/2018 - Harjeet Allen, ODH40.013 Open angle with borderline findings, low risk, bilateralFollow up:1-2 weeks repeat VF, sooner PRN Functional Status Description No Information Available Mental Status Description No Information Available Referrals Description No Information Available
[2018-12-08 13:17] VITALS: BP 119/71
--- NOTE | 2018-12-08 13:30 | UC ---
Upper Extremity HPI - HPI Summary HPI Summary: was feeling fine yesterday am doing chores, later played cards for 4 hours and started feeling pain R wrist area. No known injury but today wrist is swollen and very painful. Has tried no meds - History of Current Complaint Chief Complaint: UCUpperExtremity Stated Complaint: RIGHT HAND INJURY Time Seen by Provider: 12/08/18 13:21 Hx Obtained From: Patient Onset/Duration: Gradual Onset Severity Initially: Moderate Severity Currently: Severe Pain Intensity: 10 Character: Sharp, Stiffness Aggravating Factor(s): Movement Alleviating Factor(s): Rest - Allergies/Home Medications Allergies/Adverse Reactions: Allergies Allergy/AdvReac Type Severity Reaction Status Date / Time No Known Allergies Allergy Verified 12/08/18 13:17 PMH/Surg Hx/FS Hx/Imm Hx Previously Healthy: Yes Endocrine History: Diabetes Cardiovascular History: Hypertension Other History Of: Negative For: Anticoagulant Therapy - Surgical History Surgical History: Yes Surgery Procedure, Year, and Place: 1996 BACK SURGERY, [facility]. 12/2012 [place] [facility] [place] [facility] [place] B[place]acts - Family History Known Family History: Positive: Cardiac Disease, Hypertension, Non-Contributory - Social History Occupation: Retired Lives: With Family Alcohol Use: None Substance Use Type: None Smoking Status (MU): Former Smoker Type: Cigarettes Amount Used/How Often: 1PPD Have You Smoked in the Last Year: No When Did the Patient Quit Smoking/Using Tobacco: 2002 Household Exposure Type: Cigarettes - Immunization History Most Recent Influenza Vaccination: DOES NOT GET Most Recent Tetanus Shot: UNKNOWN Most Recent Pneumonia Vaccination: NONE Review of Systems All Other Systems Reviewed And Are Negative: Yes Constitutional: Positive: Negative. Negative: Fever, Chills Skin: Positive: Negative. Negative: Rash Respiratory: Positive: Negative Cardiovascular: Positive: Negative Musculoskeletal: Positive: Decreased ROM - R wrist Neurological: Positive: Negative Psychological: Positive: Negative Is Patient Immunocompromised?: No Physical Exam Triage Information Reviewed: Yes Appearance: Well-Appearing, No Pain Distress, Obese Vital Signs: Initial Vital Signs Temp 98 F 12/08/18 13:14 Pulse 86 12/08/18 13:14 Resp 17 12/08/18 13:14 BP 119/71 12/08/18 13:14 Pulse Ox 100 12/08/18 13:14 Vital Signs Reviewed: Yes Respiratory Exam: Normal Respiratory: Positive: Lungs clear Cardiovascular Exam: Normal Cardiovascular: Positive: RRR Musculoskeletal: Positive: Strength Intact, ROM Limited @ - R wrist d/t pain. pain distal radius with small area swelling, no redness or warmth, no streaking Neurological Exam: Normal Neurological: Positive: Alert Psychological Exam: Normal Skin Exam: Normal - no rash or redness R wrist/hand Diagnostics - Radiology No standard instances Radiology Interpretation Completed By: Radiologist - chronic old fracture R scaphoid, soft tissue swelling, osteoarthritis Upper Extremity Course/Dx - Differential Dx/Diagnosis Differential Diagnosis/HQI/PQRI: Bursitis, Contusion, Fracture (Closed), Other - Gout Provider Diagnosis: Tendonitis Discharge ED - Sign-Out/Discharge Documenting (check all that apply): Patient Departure All imaging exams completed and their final reports reviewed: Yes - soft tissue swelling, chronic old fracture R scaphoid - Discharge Plan Condition: Good Disposition: HOME Prescriptions: Ibuprofen TAB* [Motrin TAB* 600 MG] 600 mg PO Q6H PRN #30 tab PRN Reason: Pain - Moderate Patient Education Materials: Tendinitis (ED) Referrals: Mayo Goodrich MD [Primary Care Provider] - 1 Week (if wrist no better) Additional Instructions: use splint for 5 days use ibuprofen 600mg every 6 hours with food for 3-5 days - Billing Disposition and Condition Condition: GOOD Disposition: Home - Attestation Statements Provider Attestation: Per institutional requirements, I have reviewed the chart, however, I was not consulted specifically or made aware of this patient by the midlevel provider. I did not personally evaluate, interact with , or disposition this patient.
== END 2018-12-08 14:15 | disposition home or self-care (01) ==
LOC: UCEAST 13:07
DX: M77.9 Enthesopathy, unspecified (principal); E11.9 Type 2 diabetes mellitus without complications; I10 Essential (primary) hypertension; Z87.891 Personal history of nicotine dependence; Z96.652 Presence of left artificial knee joint
CPT/HCPCS: 99213; G0463

== ENCOUNTER 2019-03-04 08:20 | Day surgery (SDC) | payer MEDICARE ==
[~2019-03-04 08:20] MED LIST changes: -Acetaminophen TAB* 325 MG PO PRN; +Famotidine IV* 10 MG/ML 2 ML (20 mg) IV ONE; +Lactated Ringers 1000 ML Bag* 1,000 ML IV SCH
[2019-03-04] MEDS ORDERED: Midazolam* 1 MG/ML 5 ML VIAL (5 MG) ONE (08:49)
[2019-03-04] MEDS ORDERED: Dexamethasone IV* 4 MG/ML 1 ML (4 MG) ONE (08:49)
[2019-03-04] MEDS ORDERED: Lidocaine 2% PF * 5 ML VIAL ONE (08:49)
[2019-03-04] MEDS ORDERED: KETAMINE HCL* 50 MG/ML 10 ML VIAL ONE (08:49)
[2019-03-04] MEDS ORDERED: Ondansetron INJ* 2 MG/ML VIAL ONE ×2 (08:49→12:20)
[2019-03-04] MEDS ORDERED: Propofol* 10 MG/ML 20 ML BTL ONE (08:49)
[2019-03-04] MEDS ORDERED: fentaNYL* 50 MCG/ML 2 ML VIAL (100 MCG VIAL) ONE ×3 (08:49→12:20)
[2019-03-04] MEDS ORDERED: Ketorolac INJ* 30 MG/ML 1 ML VIAL ONE (08:49)
[2019-03-04] MEDS ORDERED: Buffered Lidocaine 1% SYRIN* 1 ML/SYRINGE INTRADERM ONE (09:13)
[2019-03-04] MEDS ORDERED: ceFAZolin 1 GM ADVAN(*) 1 GM ADDV.VIAL IVPB ONE (09:13)
[2019-03-04] MEDS ORDERED: Famotidine IV* 10 MG/ML 2 ML (20 mg) ONE (09:13)
[2019-03-04] MEDS ORDERED: ceFAZolin 2 GM PREMIX in ORs 2 GM/50 ML BAG ONE (09:13)
[2019-03-04] MEDS ORDERED: Bupivacaine 0.25% SDV* 30 ML ONE (09:57)
[2019-03-04] MEDS ORDERED: Levalbuterol HFA INHALER* 1 PUFF MDI ONE (10:26)
[2019-03-04] MEDS ORDERED: EPHEDrine (Pressors)* 50 MG/ML VIAL ONE (10:39)
[2019-03-04] MEDS ORDERED: Naloxone* 0.4 MG/ML 1 ML VIAL IV PRN (11:19)
[2019-03-04] MEDS ORDERED: Levalbuterol 0.63MG/3ML NEB* UNIT OF USE INH PRN (11:19)
[2019-03-04] MEDS ORDERED: Ondansetron INJ* 2 MG/ML VIAL IV PRN (11:19)
[2019-03-04] MEDS ORDERED: HYDROmorphone INJ1* 1 MG/ML SYRINGE ONE (11:46)
[2019-03-04] MEDS: fentaNYL* 50 MCG/ML 2 ML VIAL (100 MCG VIAL) IV PRN ×2 (12:20→12:34)
[2019-03-04 13:27] VITALS: BP 125/80
--- NOTE | 2019-03-04 20:46 | OP ---
DATE OF OPERATION: 03/04/19 [facility] DATE OF : 47 SURGEON: Dante Lin MD DIET CONSULTANT: CADY Davis. An retail assistant store manager was needed for the procedure to aid in positioning of the arm and retraction. ANESTHESIOLOGIST: Dr. Fleming. ANESTHESIA: General. 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 OPERATIVE PROCEDURE: 1. Right wrist proximal row carpectomy. 2. Right posterior interosseous nerve neurectomy. INDICATIONS: Mr. Campos is 73 years old. 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 We had talked about treatment options, risks, and benefits. He wanted to proceed with surgery. He understands the reasonable expectations of surgery with pain relief, but certainly not full motion. ESTIMATED BLOOD LOSS: 2 mL. COMPLICATIONS: None. FINDINGS: See above and below. DESCRIPTION OF PROCEDURE: Mr. Campos was seen in the preoperative holding area. The correct site, side, and procedures were identified. We came back to the operating room where the arm was prepped and draped in the usual fashion and a time- out was performed. The arm was exsanguinated with the Esmarch and the tourniquet was inflated. I made a longitudinal incision over the posterior wrist. Dissection was carried down. Full-thickness flaps were raised off of the extensor retinaculum. The retinaculum was incised over the third dorsal compartment. The EPL tendon was transposed. I raised retinacular flaps and then retracted the second and third dorsal compartment tendons radially and the fourth and fifth dorsal compartment tendons ulnarly. This provided excellent exposure of the dorsal wrist capsule. The wrist was flexed and a distally based capsular U flap was raised. At this point, I could see all the carpus. I inspected the proximal pole of the capitate that looked good. I went ahead and excised the proximal pole of the scaphoid. I then released the soft tissue about the lunate and excised the lunate. I then excised the triquetrum and lastly what took the most time was excising that distal pole of the scaphoid, which was very flexed and pronated, but ultimately I was able to get a full distal scaphoid excision as well. Once I had completed the proximal row carpectomy, I dissected out the last 2 cm of the posterior interosseous nerve. This was excised for long-term pain control. At this point, the wound was irrigated out. The wrist capsule was closed with 4-0 PDS suture. The retinaculum was repaired with 3-0 PDS suture leaving the EPL tendon transposed. The skin was closed with 3-0 Monocryl and Steri-Strips. 0.25% Marcaine was infiltrated. The wound was dressed and a volar plaster wrist splint was applied. He was taken to the recovery room in stable condition. [id number]/[facility] #: [id number] AILYN
== END 2019-03-04 13:28 | disposition home or self-care (01) ==
LOC: OR 08:20
PROVIDERS: ATTEND Orthopaedic Surgery Hand Surgery
DX: M19.231 Secondary osteoarthritis, right wrist (principal); S62.001K Unspecified fracture of navicular [scaphoid] bone of right wrist, subsequent encounter for fracture with nonunion; E11.9 Type 2 diabetes mellitus without complications; Z79.84 Long term (current) use of oral hypoglycemic drugs; I10 Essential (primary) hypertension; J44.9 Chronic obstructive pulmonary disease, unspecified; E78.00 Pure hypercholesterolemia, unspecified; M19.90 Unspecified osteoarthritis, unspecified site; I25.10 Atherosclerotic heart disease of native coronary artery without angina pectoris; R60.9 Edema, unspecified; Z87.891 Personal history of nicotine dependence; X58.XXXD Exposure to other specified factors, subsequent encounter; Y92.9 Unspecified place or not applicable
CPT/HCPCS: 88302; 88304; 88311; A9270-GY; J0690; J1100; J1170; J1885; J2250; J2405; J2704; J3010; J3490

== ENCOUNTER 2019-04-17 00:26 | Emergency (ER) | payer MEDICARE ==
--- OUTSIDE RECORDS SUMMARY | 2019-04-17 00:42 | XMS REPORT | Continuity of Care Document ---
:1945 External Reference #:[id number] Author Name Dante Lin MD (transmitted by agent of provider Joselin Be) Address [address] [place] [address] Care Team Providers Name Role Phone Mayo Goodrich MD - Family Medicine Care Team Information Travel Freight And Passenger Agent [phone] Olivia Escamilla NP - Nurse Care Team Information Travel Freight And Passenger Agent [phone] Practitioner Problems Active Problems Provider Date Chest pain Amol Rios M.D. Onset: 01/07/2013 Malignant essential hypertension Amol Rios M.D. Onset: 2012 Dyspnea Amol Rios M.D. Onset: 01/07/2013 Essential hypertension Amol Rios M.D. Onset: 01/14/2013 Coronary arteriosclerosis Amol Rios M.D. Onset: 01/14/2013 Electrocardiogram abnormal Amol Rios M.D. Onset: 01/14/2013 Edema Amol Rios M.D. Onset: 11/28/2013 Ulnar impaction syndrome Dante Lin MD Onset: 12/25/2018 Social History Type Date Description Comments Sex Unknown ETOH Use Denies alcohol use Tobacco Use Start: Unknown End: Patient is a former quit smoking 2002, Unknown smoker 30+ 2 PPD Recreational Drug Use Denies Drug Use Smoking Status Reviewed: 04/09/19 Patient is a former quit smoking 2002, smoker 30+ 2 PPD Exercise Type/Frequency Does not exercise Allergies, Adverse Reactions, Alerts Description No Known Drug Allergies Medications Active Medications SIG Qnty Indications Ordering Date Provider Tramadol HCL 1-2 tablets by 30tabs Dante 03/04/2019 50mg Tablets mouth every 6 [facility] hours as needed pain Hydrocodone 1 tablet by mouth 60tabs Unknown Bitartrate/Acetaminophen every 6 hours as needed 5/300mg Tablets Lisinopril 1 by mouth every 90tabs Unknown 40mg Tablets day Hydrochlorothiazide 1 by mouth every 90tabs Unknown 25mg day Tablets Ventolin HFA 1 to 2 Unknown 108(90Base) inhalations every mcg/Act Aerosol 4 hours as needed Metformin HCL 1 by mouth twice Unknown 500mg Tablets a day Immunizations Description No Information Available Vital Signs Date Vital Result Comment 04/09/2019 8:22am Height 67 inches 5'7" Weight 280.00 lb Heart Rate 84 /min BP Systolic 138 mmHg BP Diastolic 72 mmHg Respiratory Rate 18 /min Pain Level 1 O2 % BldC Oximetry 98 % BMI (Body Mass Index) 43.8 kg/m2 03/19/2019 1:50pm Height 67 inches 5'7" Heart Rate 63 /min BP Systolic 140 mmHg BP Diastolic 80 mmHg Respiratory Rate 18 /min Body Temperature 98.1 F Pain Level 3 Results Test Acquired Date Facility Test Result H/L Range Note Surgical 03/04/2019 [facility] Surgical SEE RESULT [address] [place] [address] [phone] PDFReport SEE IMAGE Laboratory test 03/04/2019 [facility] Point of Care 117 mg/dL High 70-100 [address] [place] [address] [phone] 1 SEE RESULT BELOW Name: NEAL CAMPOS Shannen : [address]: Dante Lin MD Acct: [id number] Unit: [id number] AGE: 73 Location: OR Re03/04/19 SEX: M Status: DEP [facility] SPEC: [id number] RAYMUNDO: 03/04/19- SUBM DR: Dante Lin MD REQ: [id number] RECD: 03/04/19-1244 STATUS: SOUT _ ORDERED: Decal, LEVEL 2, LEVEL 3 FINAL DIAGNOSIS 1. Right posterior interosseous nerve, excision: -- Benign fibrovascular and nerve tissue. 2. Right proximal carpal row, excision: --Severe degenerative osteoarthritic changes. PRE-OPERATIVE DIAGNOSIS Osteoarthritis right wrist GROSS DESCRIPTION 1. The specimen is received in formalin labeled, Right Posterior Interosseous Nerve, and consists of a 1.7 by up to 0.2 cm hunter-white cylindrical soft tissue fragment with mild adherent yellow fat. The specimen is serially sectioned and entirely submitted in one cassette. 2. The specimen is received in formalin labeled, Right Proximal Carpal Row , and consists of a 4.7 x 3.5 by up to 1.9 cm aggregate of hunter-white irregular focally shaggy bone fragments. A few of the fragments are partially surfaced by a glistening smooth yellow-white articular surface. Shield Operator sections, one cassette following decalcification. Signed by and Reported on: Jv Avendano MD 1608 END OF REPORT DEPARTMENT OF PATHOLOGY, [address] [place] [address] Jv Avendano M.D. Director [facility] # [id number] 2 Tipple Oiler: [id number] Procedures Date Code Description Status 03/19/2019 87153 Short Arm Cast Application Completed 03/04/2019 37699 Transection/Avulsion, Spinal Nerve, Extradural Completed 03/04/2019 14105 Transection/Avulsion, Spinal Nerve, Extradural Completed 03/04/2019 33436 Transection/Avulsion, Spinal Nerve, Extradural Completed 03/04/2019 32011 Carpectomy ALL Bones Proximal Row Completed 03/04/2019 10946 Carpectomy ALL Bones Proximal Row Completed 01/25/2019 29883 EKG Tracing & Interpretation Completed Medical Devices Description No Information Available Encounters Type Date Location Provider Dx Diagnosis Office Visit 01/25/2019 [facility] Amol S. I49.3 Ventricular premature 2:40p Jefry Rios depolarization I25.10 Athscl heart disease of [place] coronary artery w/o ang pctrs I10 Essential (primary) hypertension E66.01 Morbid (severe) obesity due to excess calories I77.810 Thoracic aortic ectasia Z01.810 Encounter for preprocedural cardiovascular examination S62.001A Unsp fracture of navicular bone of right wrist, init Office Visit 12/25/2018 Sergio Howell M19.231 Secondary 2:00p [facility] at [facility] osteoarthritis, [place] right wrist S62.001K Unsp fx navicular bone of r wrist, subs for fx w nonunion Assessments Date Code Description Provider 04/09/2019 S62.001K Unspecified fracture of navicular Dante Lin MD [scaphoid] bone of right wrist, subsequent encounter for fracture with nonunion 03/19/2019 M19.231 Secondary osteoarthritis, right wrist Dante Lin MD 03/19/2019 Z47.89 Encounter for other orthopedic Dante Lin MD aftercare 03/04/2019 M19.231 Secondary osteoarthritis, right wrist CADY Davis 03/04/2019 M19.231 Secondary osteoarthritis, right wrist Dante Lin MD 03/04/2019 S62.001K Unspecified fracture of navicular CADY Davis [scaphoid] bone of right wrist, subsequent encounter for fracture with nonunion 03/04/2019 S62.001K Unspecified fracture of navicular Dante iLn MD [scaphoid] bone of right wrist, subsequent encounter for fracture with nonunion 02/05/2019 M19.231 Secondary osteoarthritis, right wrist Dante Lin MD 02/05/2019 S62.001K Unspecified fracture of navicular Dante Lin MD [scaphoid] bone of right wrist, subsequent encounter for fracture with nonunion 01/25/2019 I49.3 Ventricular premature depolarization Amol Rios M.D. 01/25/2019 I25.10 Atherosclerotic heart disease of Amol Rios M.D. [place] coronary artery with 01/25/2019 I10 Essential (primary) hypertension Amol Rios M.D. 01/25/2019 E66.01 Morbid (severe) obesity due to excess Amol Rios M.D. calories 01/25/2019 I77.810 Thoracic aortic ectasia Amol Rios M.D. 01/25/2019 Z01.810 Encounter for preprocedural Amol Rios M.D. cardiovascular examination 01/25/2019 S62.001A Unspecified fracture of shellicular Amol Rios M.D. [scaphoid] bone of right wrist, initial encounter for closed fracture 12/25/2018 M19.231 Secondary osteoarthritis, right wrist Dante Lin MD 12/25/2018 S62.001K Unspecified fracture of navicular Dante Lin MD [scaphoid] bone of right wrist, subsequent encounter for fracture with nonunion Plan of Treatment Future Appointment(s):05/14/2019 1:15 pm - Dante Lin MD at [facility] at Hctehj1904/09/2019 - TISHA Tarango62.001K Unspecified fracture of navicular [scaphoid] bone of right wrist, subsequent encounter for fracture with nonunionNew Therapy:Physical TherapyFollow up:Follow up: 4 weeks Functional Status Description No Information Available Mental Status Description No Information Available Referrals Description No Information Available
--- OUTSIDE RECORDS SUMMARY | 2019-04-17 00:42 | XMS REPORT | Continuity of Care Document ---
:1945 External Reference #:[id number] Author Name Zoraida Herrera Care Team Providers Name Role Phone Mayo Goodrich MD - Family Medicine Care Team Information Sound Engineering Technician Olivia Escamilla NP - Nurse Care Team Information Sound Engineering Technician [phone] Practitioner Problems Active Problems Provider Date Chest pain Amol Rios M.D. Onset: 01/07/2013 Malignant essential hypertension Amol Rios M.D. Onset: 2012 Dyspnea Amol Riso M.D. Onset: 01/07/2013 Essential hypertension Amol Rios [...] Use Denies Drug Use Smoking Status Reviewed: 02/05/19 Patient is a former quit smoking 2003, smoker 30+ 2 PPD Exercise Type/Frequency Does not exercise Allergies, Adverse Reactions, Alerts Description No Known Drug Allergies Medications Active Medications SIG Qnty Indications Ordering Date Provider Hydrocodone 1 tablet by mouth 60tabs Unknown [...] Available Vital Signs Date Vital Result Comment 02/05/2019 3:41pm Height 67 inches 5'7" Weight 272.00 lb Heart Rate 81 /min Respiratory Rate 12 /min Body Temperature 97.3 F Pain Level 96 BMI (Body Mass Index) 42.6 kg/m2 01/25/2019 2:08pm Height 67 inches 5'7" Weight 274.75 lb Heart Rate 68 /min ule reg cuff BP Systolic Sitting 120 mmHg BP Diastolic Sitting 80 mmHg BP Systolic Standing 118 mmHg BP Diastolic Standing 78 mmHg BMI (Body Mass Index) 43.0 kg/m2 Ejection Fraction echo 50%-% echo 04/23/18 Results Description No Information Available Procedures Date Code Description Status 01/25/2019 55265 EKG Tracing & Interpretation Completed Medical Devices Description No Information Available Encounters Type Date Location Provider Dx Diagnosis Office Visit 01/25/2019 [facility] Qutaybeh S. I49.3 Ventricular premature 2:40p Jefry Rios depolarization I25.10 Athscl heart disease of [place] coronary artery w/o ang pctrs I10 Essential (primary) hypertension E66.01 Morbid (severe) obesity due to excess calories I77.810 Thoracic aortic ectasia Z01.810 Encounter for preprocedural cardiovascular examination S62.001A Unsp fracture of navicular bone of right wrist, init Office Visit 12/25/2018 Sergio Howell M19.231 Secondary 2:00p [facility] at [facility] osteoarthritis, [place] right wrist S62.001K Unsp fx navicular bone of r wrist, subs for fx w nonunion Assessments Date Code Description Provider 02/05/2019 M19.231 Secondary osteoarthritis, right wrist Dante Lin MD 02/05/2019 S62.001K Unspecified fracture of navicular Dante Lin MD [scaphoid] bone of right wrist, subsequent encounter for fracture with nonunion 01/25/2019 I49.3 Ventricular premature depolarization Qutaybeh S. Maghaydah , M.D. 01/25/2019 I25.10 Atherosclerotic heart disease of Amol Rios M.D. [place] coronary artery with 01/25/2019 I10 Essential (primary) hypertension Amol Rios M.D. 01/25/2019 E66.01 Morbid (severe) obesity due to excess Amol Rios M.D. calories 01/25/2019 I77.810 Thoracic aortic ectasia Amol Rios M.D. 01/25/2019 Z01.810 Encounter for preprocedural Amol Rios M.D. cardiovascular examination 01/25/2019 S62.001A Unspecified fracture of navicular Amol Rios M.D. [scaphoid] bone of right wrist, initial encounter for closed fracture 12/25/2018 M19.231 Secondary osteoarthritis, right wrist Dante Lin MD 12/25/2018 S62.001K Unspecified fracture of navicular Dante Lin MD [scaphoid] bone of right wrist, subsequent encounter for fracture with nonunion Plan of Treatment Future Appointment(s):03/19/2019 2:00 pm - Dante Lin MD at [facility] at Ghtqix0503/04/2019 10:15 am - Dante Lin MD at [facility] at Qkissf0202/05/2019 - Dante Lin MDM19.231 Secondary osteoarthritis, right wristFollow up:Follow up: 10-14 days smeaveN38.001K Unspecified fracture of navicular [scaphoid] bone of right wrist, subsequent encounter for fracture with nonunion Functional Status Description No Information Available Mental Status Description No Information Available Referrals Description No Information Available
[2019-04-17 01:10] LABS: ABS Basophils 0.1 10^3/ul (0-0.2); ABS Eosinophils 0.2 10^3/ul (0-0.6); ABS Lymphocytes 1.4 10^3/ul (1.0-4.8); ABS Monocytes 0.7 10^3/ul (0-0.8); ABS Neutrophils 12.7 10^3/ul (1.5-7.7); Eosinophil % 1.2 %; Hematocrit 36 % (42-52); Hemoglobin 12.1 g/dL (14.0-18.0); Lymphocyte % 9.2 %; Mean Corpuscular HGB Conc 34 g/dL (31-36); Mean Corpuscular Hemoglobin 32 pg (27-31); Mean Corpuscular Volume 93 fL (80-94); Mean Platelet Volume 9.6 fL (7.4-10.4); Platelet Count 221 10^3/uL (150-450); Red Blood Count 3.83 10^6 /uL (4.18-5.48); Red Cell Distribution Width 14 % (10-15)
[2019-04-17 01:27] LABS: Urine Appearance Clear; Urine Bilirubin Negative (Negative); Urine Blood Negative (Negative); Urine Color Yellow; Urine Glucose Negative (Negative); Urine Ketones Negative (Negative); Urine Nitrite Negative (Negative); Urine Protein Negative (Negative); Urine Specific Gravity 1.023 (1.010-1.030); Urine Urobilinogen Negative (Negative)
[2019-04-17 01:28] LABS: Albumin 4.3 g/dL (3.2-5.2); Albumin/Globulin Ratio 1.2 (1-3); BUN/Creatinine Ratio 24.7 (8-20); C Reactive Protein 15.65 mg/L (<8.01); Calcium 9.4 mg/dL (8.6-10.3); EGFR African American 101.7 (>60); Globulin 3.6 g/dL (2-4); Potassium 3.9 mmol/L (3.5-5.0); Total Bilirubin 0.3 mg/dL (0.2-1.0); Total Protein 7.9 g/dL (6.4-8.9)
[2019-04-17] MEDS ORDERED: NS 0.9% 1000 ML** 1,000 ML IV ONE (01:43)
[2019-04-17] MEDS ORDERED: Ondansetron INJ* 2 MG/ML VIAL IV ONE (01:43)
--- NOTE | 2019-04-17 02:17 | ED ---
Abdominal Pain/Male - HPI Summary HPI Summary: Pt is a 73 y/o M presenting to the ED with a chief complaint of LUQ abd pain initially onset around tonight. He states the pain was severe. Went to the right upper quadrant as well. He reports nausea and vomiting. Pain also went to the left lower quadrant. No fevers or chills. No diarrhea. No urinary complaints. Never had this before. He states he last had sausage for dinner which he thought tasted bad. - History of Current Complaint Chief Complaint: EDAbdPain Stated Complaint: ABD PAIN PER PT Time Seen by Provider: 04/17/19 01:44 Hx Obtained From: Patient Onset/Duration: Sudden Onset, Lasting Hours, Still Present Timing: Constant, Lasting Hours Severity Initially: Moderate Severity Currently: Severe Pain Intensity: 8 Pain Scale Used: 0-10 Numeric Location: Discrete At: LUQ Radiates: No Aggravating Factor(s): Nothing Alleviating Factor(s): Nothing Associated Signs And Symptoms: Positive: Nausea, Vomiting. Negative: Fever, Urinary Symptoms, Diarrhea - Allergies/Home Medications Allergies/Adverse Reactions: Allergies Allergy/AdvReac Type Severity Reaction Status Date / Time No Known Allergies Allergy Verified 04/17/19 00:31 Home Medications: Home Medications Hydrochlorothiazide TAB* [Hydrodiuril TAB*] 25 mg PO QAM 05/17/18 [History Confirmed 03/04/19] Hydrocodone/Acetaminophen [Hydrocodone-Acetamin 5-300 mg] 1 tab PO BID 05/17/18 [History Confirmed 03/04/19] Albuterol HFA INHALER* [Ventolin HFA Inhaler*] 2 puff INH Q4H PRN #1 mdi [Rx Confirmed 03/04/19] Metformin HCl 500 mg PO BID 10/07/18 [History Confirmed 03/04/19] lisinopriL [Lisinopril] 20 mg PO QAM 10/07/18 [History Confirmed 03/04/19] PMH/Surg Hx/FS Hx/Imm Hx Previously Healthy: Yes Endocrine/Hematology History: Reports: Hx Diabetes - TYPE II- ON METFORMIN Denies: Hx Anticoagulant Therapy, Hx Bone Marrow Disease, Hx Sickle Cell Disease, Hx Thyroid Disease, Hx Anemia Cardiovascular History: Reports: Hx Hypertension - ON DAILY MEDS STATES WELL CONTROLLED Denies: Hx Angina, Hx Cardiac Arrest, Hx Cardiomegaly, Hx Congestive Heart Failure, Hx Coronary Artery Disease, Hx Pacemaker/ICD, Hx Peripheral Vascular Disease, Hx Rheumatic Fever, Hx Valvular Heart Disease, Other Cardiovascular Problems/Disorders Respiratory History: Reports: Hx Sleep Apnea - NO CPAP, Other Respiratory Problems/Disorders - PREVIOUS SMOKER Denies: Hx Asthma, Hx Chronic Obstructive Pulmonary Disease (COPD), Hx Pulmonary Edema, Hx Pulmonary Embolism GI History: Denies: Hx Cirrhosis, Hx Crohn's Disease, Hx Gastroesophageal Reflux Disease , Hx Hiatal Hernia, Hx Irritable Bowel, Hx Jaundice, Hx Ulcer, Other GI Disorders History: Denies: Hx Kidney Infection, Hx Kidney Stones, Hx Renal Disease, Other Problems/Disorders Musculoskeletal History: Reports: Hx Arthritis - RIGHT WRIST, Hx Back Problems - Back Surgery in the distant past Denies: Hx Bursitis, Hx Tendonitis, Other Musculoskeletal History Sensory History: Reports: Hx Cataracts - BILATERAL-SURGERY TO CORRECT, Hx Contacts or Glasses - GLASSES, Hx Hearing Problem - Hard of hearing Denies: Hx Eye Injury, Hx Eye Prosthesis, Hx Glaucoma, Hx Legally Blind, Hx Macular Degeneration, Hx Vision Problem, Hx Deafness, Hx Hearing Aid, Other Sensory Impairments Opthamlomology History: Reports: Hx Cataracts - BILATERAL-SURGERY TO CORRECT, Hx Contacts or Glasses - GLASSES Denies: Hx Eye Injury, Hx Eye Prosthesis, Hx Glaucoma, Hx Legally Blind, Hx Macular Degeneration, Hx Vision Problem, Other Sensory Impairments Neurological History: Reports: Other Neuro Impairments/Disorders - BACK SURGERY - 3 RODS IN BACK 1996 Psychiatric History: Reports: Hx Anxiety - NO MEDS - Cancer History Hx Chemotherapy: No - Surgical History Surgery Procedure, Year, and Place: 1996 BACK SURGERY, [facility]. 12/2012 HEART CATHERIZATION, [facility]. 2016 LEFT KNEE REPLACEMENT [facility]. Bilateral cataracts Hx Anesthesia Reactions: No Infectious Disease History: No Infectious Disease History: Denies: Hx Hepatitis, Traveled Outside the [place] in Last 30 Days - Family History Known Family History: Positive: Cardiac Disease, Hypertension - Social History Alcohol Use: None Hx Substance Use: No Substance Use Type: Reports: None Hx Tobacco Use: Yes Smoking Status (MU): Former Smoker Type: Cigarettes Amount Used/How Often: 1PPD Have You Smoked in the Last Year: No Review of Systems - ROS Summary Review of Systems Summary: Home Medications Medication Instructions Recorded Confirmed Type Hydrochlorothiazide TAB* 25 mg PO QAM 05/17/18 03/04/19 History [Hydrodiuril TAB*] Hydrocodone/Acetaminophen 1 tab PO BID 05/17/18 03/04/19 History [Hydrocodone-Acetamin 5-300 mg] Albuterol HFA INHALER* [Ventolin 2 puff INH Q4H PRN #1 mdi 10/07/18 03/04/19 Rx HFA Inhaler*] Metformin HCl 500 mg PO BID 10/07/18 03/04/19 History lisinopriL [Lisinopril] 20 mg PO QAM 10/07/18 03/04/19 History Negative: Fever Positive: Abdominal Pain, Vomiting, Nausea. Negative: Diarrhea Positive: no symptoms reported All Other Systems Reviewed And Are Negative: Yes Physical Exam - Summary Physical Exam Summary: General: Well-developed, Well-nourished male. Appears in mild discomfort. HEENT: Normocephalic, Atraumatic. Eyes: Conjuctiva normal, PERRL. Oropharynx: Clear, mucous membranes moist, (-) exudates. Neck: Soft, FROM, (-) lymphadenopathy, (-) thyromegaly, (-) JVD. Cardiovascular: Normal sinus rhythm, (-) murmur. Lungs: Clear to auscultation bilaterally (-) wheezes, (-) rales, (-) rhonchi. Abdomen: Mild left-mid and right-mid quadrant tenderness, no rebound, no guarding (-) organomegaly, normal bowel sounds. Back: (-) CVA tenderness Extremities: No edema. Skin: Warm, dry, (-) rash. Neuro: Alert and oriented x3, moves all extremities equally. No ataxia. No gait disturbance. No sensory deficit. Normal strength, normal sensation. Psychiatric: Mood normal, affect normal. Triage Information Reviewed: Yes Vital Signs On Initial Exam: Initial Vitals Temp Pulse Resp BP Pulse Ox 97.4 F 88 20 137/88 93 04/17/19 00:28 04/17/19 00:28 04/17/19 00:28 04/17/19 00:28 04/17/19 00:28 Vital Signs Reviewed: Yes Procedures - Sedation Patient Received Moderate/Deep Sedation with Procedure: No Diagnostics - Vital Signs Vital Signs Temp Pulse Resp BP Pulse Ox 04/17/19 00:28 97.4 F 88 20 137/88 93 - Laboratory Lab Results: Lab Results 04/17/19 04/17/19 04/17/19 Range/Units 01:01 01:01 01:01 WBC 15.0 H (3.5-10.8) 10^3/uL RBC 3.83 L (4.18-5.48) 10^6 /uL Hgb 12.1 L (14.0-18.0) g/dL Hct 36 L (42-52) % MCV 93 (80-94) fL MCH 32 H (27-31) pg MCHC 34 (31-36) g/dL RDW 14 (10-15) % Plt Count 221 (150-450) 10^3/uL MPV 9.6 (7.4-10.4) fL Neut % (Auto) 84.7 % Lymph % (Auto) 9.2 % [place] % (Auto) 4.5 % Eos % (Auto) 1.2 % Baso % (Auto) 0.4 % Absolute Neuts (auto) 12.7 H (1.5-7.7) 10^3/ul Absolute Lymphs (auto) 1.4 (1.0-4.8) 10^3/ul Absolute Monos (auto) 0.7 (0-0.8) 10^3/ul Absolute Eos (auto) 0.2 (0-0.6) 10^3/ul Absolute Basos (auto) 0.1 (0-0.2) 10^3/ul Absolute Nucleated RBC 0.0 10^3/ul Nucleated RBC % 0.0 Sodium 135 (135-145) mmol/L Potassium 3.9 (3.5-5.0) mmol/L Chloride 98 L (101-111) mmol/L Carbon Dioxide 29 (22-32) mmol/L Anion Gap 8 (2-11) mmol/L BUN 22 (6-24) mg/dL Creatinine 0.89 (0.67-1.17) mg/dL Est GFR ( Amer) 101.7 (>60) Est GFR (Non-Af Amer) 84.0 (>60) BUN/Creatinine Ratio 24.7 H (8-20) Glucose 169 H (70-100) mg/dL Lactic Acid 2.3 H* (0.5-2.0) mmol/L Calcium 9.4 (8.6-10.3) mg/dL Total Bilirubin 0.30 (0.2-1.0) mg/dL AST 13 (13-39) U/L ALT 13 (7-52) U/L Alkaline Phosphatase 62 (34-104) U/L C-Reactive Protein 15.65 H (<8.01) mg/L Total Protein 7.9 (6.4-8.9) g/dL Albumin 4.3 (3.2-5.2) g/dL Globulin 3.6 (2-4) g/dL Albumin/Globulin Ratio 1.2 (1-3) Lipase 17 (11.0-82.0) U/L Urine Color Urine Appearance Urine pH (5-9) Ur Specific [place] (1.010-1.030) Urine Protein (Negative) Urine Ketones (Negative) Urine Blood (Negative) Urine Nitrate (Negative) Urine Bilirubin (Negative) Urine Urobilinogen (Negative) Ur Leukocyte Esterase (Negative) Urine Glucose (Negative) Urine Ascorbic Acid (Negative) 04/17/19 Range/Units 01:08 WBC (3.5-10.8) 10^3/uL RBC (4.18-5.48) 10^6 /uL Hgb (14.0-18.0) g/dL Hct (42-52) % MCV (80-94) fL MCH (27-31) pg MCHC (31-36) g/dL RDW (10-15) % Plt Count (150-450) 10^3/uL MPV (7.4-10.4) fL Neut % (Auto) % Lymph % (Auto) % [place] % (Auto) % Eos % (Auto) % Baso % (Auto) % Absolute Neuts (auto) (1.5-7.7) 10^3/ul Absolute Lymphs (auto) (1.0-4.8) 10^3/ul Absolute Monos (auto) (0-0.8) 10^3/ul Absolute Eos (auto) (0-0.6) 10^3/ul Absolute Basos (auto) (0-0.2) 10^3/ul Absolute Nucleated RBC 10^3/ul Nucleated RBC % Sodium (135-145) mmol/L Potassium (3.5-5.0) mmol/L Chloride (101-111) mmol/L Carbon Dioxide (22-32) mmol/L Anion Gap (2-11) mmol/L BUN (6-24) mg/dL Creatinine (0.67-1.17) mg/dL Est GFR ( Amer) (>60) Est GFR (Non-Af Amer) (>60) BUN/Creatinine Ratio (8-20) Glucose (70-100) mg/dL Lactic Acid (0.5-2.0) mmol/L Calcium (8.6-10.3) mg/dL Total Bilirubin (0.2-1.0) mg/dL AST (13-39) U/L ALT (7-52) U/L Alkaline Phosphatase (34-104) U/L C-Reactive Protein (<8.01) mg/L Total Protein (6.4-8.9) g/dL Albumin (3.2-5.2) g/dL Globulin (2-4) g/dL Albumin/Globulin Ratio (1-3) Lipase (11.0-82.0) U/L Urine Color Yellow Urine Appearance Clear Urine pH 5.0 (5-9) Ur Specific [place] 1.023 (1.010-1.030) Urine Protein Negative (Negative) Urine Ketones Negative (Negative) Urine Blood Negative (Negative) Urine Nitrate Negative (Negative) Urine Bilirubin Negative (Negative) Urine Urobilinogen Negative (Negative) Ur Leukocyte Esterase Negative (Negative) Urine Glucose Negative (Negative) Urine Ascorbic Acid * A (Negative) Result Diagrams: 04/17/19 01:01 04/17/19 01:01 Lab Statement: Any lab studies that have been ordered have been reviewed, and results considered in the medical decision making process. - CT CT a/p CT Interpretation Completed By: Radiologist Summary of CT Findings: 1. There is colonic diverticulosis without evidence for acute diverticulitis. 2. No other acute CT pathology. ED physician has reviewed this report. Abdominal Pain Male Course/Dx - Course Course Of Treatment: 73-year-old male presents with severe abdominal pain. He states all of a sudden tonight he developed severe left upper quadrant abdominal pain. Pain then radiated to his right upper quadrant and his left lower quadrant. He did have vomiting at home. No diarrhea. No fevers or chills. No urinary complaints. No one else has symptoms. He never had anything like this before. On physical exam he has mild diffuse upper abdominal tenderness to palpation. Appears in mild discomfort. Otherwise within normal limits. Workup demonstrates an elevated white count. CT abdomen and pelvis demonstrates diverticulosis without diverticulitis. Patient was given IV fluids and Zofran. Was resting comfortably. Discharged to home. Advised clear fluids. Follow up PCP. Follow up sooner for any worsening symptoms. - Diagnoses Provider Diagnoses: Abdominal pain Discharge ED - Sign-Out/Discharge Documenting (check all that apply): Patient Departure - Discharge Plan Condition: Stable Disposition: HOME Patient Education Materials: Abdominal Pain (ED) Referrals: Mayo Goodrich MD [Primary Care Provider] - Additional Instructions: Please follow up with your primary care provider within the next 1-3 days. Return to the emergency department with any new or worsening symptoms. - Billing Disposition and Condition Condition: STABLE Disposition: Home - Attestation Statements Document Initiated by Talisha: Yes Documenting Scribe: Angelica Oneill Provider For Whom Talisha is Documenting (Include Credential): Marta Steen MD. Scribe Attestation: Angelica Rojas, scribed for Marta Steen MD. on 04/17/19 at 0550. Scribe Documentation Reviewed: Yes Provider Attestation: The documentation as recorded by the Angelica jordan accurately reflects the service I personally performed and the decisions made by Marta maynard MD. Status of Scribe Document: Viewed
[2019-04-17] MEDS ORDERED: Iodixanol* (CONTRAST) 320 MG/ML 100 ML SDV IV ONE (02:32)
[2019-04-17 04:52] VITALS: BP 111/75
== END 2019-04-17 04:35 | disposition home or self-care (01) ==
LOC: ED 00:26
DX: R10.12 Left upper quadrant pain (principal); E11.9 Type 2 diabetes mellitus without complications; I10 Essential (primary) hypertension; F41.9 Anxiety disorder, unspecified; Z87.891 Personal history of nicotine dependence; Z96.652 Presence of left artificial knee joint; Z79.84 Long term (current) use of oral hypoglycemic drugs; Z79.899 Other long term (current) drug therapy
CPT/HCPCS: 36415; 74177; 80053; 81003; 83605; 83690; 85025; 86140; 96361; 96374; 99284; J2405; Q9967

== ENCOUNTER 2020-12-27 10:56 | Observation (INO) ==
[2020-12-27 11:51] LABS: ABS Lymphocytes 0.9 10^3/ul (1.0-4.8); ABS Monocytes 1.1 10^3/ul (0-0.8); ABS Neutrophils 12.2 10^3/ul (1.5-7.7); Eosinophil % 0.1 %; Hematocrit 35 % (42-52); Hemoglobin 11.8 g/dL (14.0-18.0); Lymphocyte % 6.4 %; Mean Corpuscular HGB Conc 34 g/dL (31-36); Mean Corpuscular Hemoglobin 32 pg (27-31); Mean Corpuscular Volume 95 fL (80-94); Mean Platelet Volume 9.4 fL (7.4-10.4); Platelet Count 175 10^3/uL (150-450); Red Blood Count 3.69 10^6 /uL (4.18-5.48); Red Cell Distribution Width 14 % (10-15); White Blood Count 14.3 10^3/uL (3.5-10.8)
[2020-12-27 11:58] LABS: Activated Partial Thrombo Time 29.1 seconds (26.0-38.0); INR 1.28 (0.86-1.15)
[2020-12-27 12:10] LABS: ALT 19 U/L (7-52); AST 17 U/L (13-39); Albumin 3.9 g/dL (3.2-5.2); Albumin/Globulin Ratio 1.1 (1-3); Alkaline Phosphatase 58 U/L (35-149); Anion Gap 10 mmol/L (2-11); Blood Urea Nitrogen 25 mg/dL (6-24); C Reactive Protein 195.53 mg/L (<8.01); CO2 Carbon Dioxide 23 mmol/L (22-32); Calcium 9.2 mg/dL (8.6-10.3); Chloride 97 mmol/L (101-111); Globulin 3.7 g/dL (2-4); Glucose 219 mg/dL (70-100); Potassium 3.7 mmol/L (3.5-5.0); Sodium 130 mmol/L (135-145); Total Protein 7.6 g/dL (6.4-8.9)
[2020-12-27 12:43] LABS: PSA Screening Total 8.434 ng/mL (0-4.000)
[2020-12-27] MEDS ORDERED: Lactated Ringers 1000 ml BAG 1,000 ML IV SCH ×2 (13:00→18:00)
[2020-12-27 13:24] LABS: Troponin I 0.01 ng/mL (<0.03)
[2020-12-27] MEDS ORDERED: Lactated Ringers 1000 ml BAG 1,000 ML IV ONE ×2 (13:45→23:12)
[2020-12-27] MEDS ORDERED: cefTRIAXone 1 gm/50 mL NS BAG 1 GM/50 ML BAG IV ONE (16:10)
[2020-12-27 17:29] LABS: Urine Appearance Cloudy; Urine Bilirubin Negative (Negative); Urine Blood 2+ (Negative); Urine Color Amber; Urine Glucose Negative (Negative); Urine Ketones Negative (Negative); Urine Nitrite Negative (Negative); Urine Protein 1+(30 mg/dL) (Negative); Urine Specific Gravity 1.019 (1.002-1.030); Urine Urobilinogen Negative (Negative)
[2020-12-27 17:54] LABS: Urine Bacteria Absent (Absent); Urine Red Blood Cell 1+(3-5/hpf) (Absent); Urine White Blood Cell 3+(>20/hpf) (Absent)
[2020-12-27] MEDS ORDERED: Albuterol HFA INHALER 8 gm MDI INH PRN (19:00)
[2020-12-27] MEDS ORDERED: Dextrose 50% Syringe 50 ml 25 GM/50 ML SYRINGE IV PUSH PRN (19:01)
[2020-12-27] MEDS: Enoxaparin 40 MG/0.4 ML SYR SUBCUT SCH (19:10)
[2020-12-27 19:42] LABS: Rapid COVID-19 Molecular Undetected (Undetected)
[2020-12-27] MEDS ORDERED: NS 0.9% 500 ml BAG 500 ML IV ONE (23:02)
[2020-12-27] MEDS ORDERED: NS 0.9% 1000 ml BAG 1,000 ML IV SCH (23:15)
[2020-12-28 01:05] LABS: Total Iron Binding Capacity 349 mcg/dL (250-450); Transferrin 249 mg/dL (203-362)
[2020-12-28 01:06] LABS: % Iron Saturation 6 % (15-55); Iron < 20 ug/dL (50-212); Unsaturated Iron Binding < 334 ug/dL
[2020-12-28 01:40] LABS: Ferritin 184.1 ng/mL (24-336)
[2020-12-28 01:44] LABS: Folate 17.28 ng/mL (5.90-24.80); Vitamin B12 168 pg/mL (180-914)
[2020-12-28 06:35] LABS: Calcium 8.8 mg/dL (8.6-10.3); Potassium 3.4 mmol/L (3.5-5.0)
[2020-12-28 07:06] LABS: ABS Lymphocytes 1.2 10^3/ul (1.0-4.8); ABS Monocytes 0.9 10^3/ul (0-0.8); ABS Neutrophils 8.6 10^3/ul (1.5-7.7); Eosinophil % 0.2 %; Hematocrit 31 % (42-52); Hemoglobin 10.9 g/dL (14.0-18.0); Lymphocyte % 11.4 %; Mean Corpuscular HGB Conc 35 g/dL (31-36); Mean Corpuscular Hemoglobin 33 pg (27-31); Mean Corpuscular Volume 96 fL (80-94); Mean Platelet Volume 9.7 fL (7.4-10.4); Platelet Count 150 10^3/uL (150-450); Red Blood Count 3.27 10^6 /uL (4.18-5.48); Red Cell Distribution Width 14 % (10-15); White Blood Count 10.8 10^3/uL (3.5-10.8)
[2020-12-28] MEDS: Ciprofloxacin 400mg IVPREMIX 400 MG/200 ML BAG IVPB SCH ×2 (08:11→21:24)
[2020-12-28 08:55] LABS: C Reactive Protein 243.52 mg/L (<8.01)
[2020-12-28] MEDS: Potassium Chlor 20 meq TAB.ER PO SCH ×2 (11:33→15:15)
[2020-12-28] MEDS: Enoxaparin 40 MG/0.4 ML SYR SUBCUT SCH (21:40)
[2020-12-29 06:04] LABS: Hematocrit 34 % (42-52); Hemoglobin 11.4 g/dL (14.0-18.0); Mean Corpuscular HGB Conc 34 g/dL (31-36); Mean Corpuscular Hemoglobin 32 pg (27-31); Mean Corpuscular Volume 95 fL (80-94); Mean Platelet Volume 9.4 fL (7.4-10.4); Platelet Count 180 10^3/uL (150-450); Red Blood Count 3.55 10^6 /uL (4.18-5.48); Red Cell Distribution Width 13 % (10-15); White Blood Count 6.1 10^3/uL (3.5-10.8)
[2020-12-29 06:21] LABS: ABS Eosinophils 0.1 10^3/ul (0-0.6); ABS Lymphocytes 1.1 10^3/ul (1.0-4.8); ABS Monocytes 0.6 10^3/ul (0-0.8); ABS Neutrophils 4.3 10^3/ul (1.5-7.7); Eosinophil % 1.4 %; Lymphocyte % 18.3 %
[2020-12-29 06:43] LABS: Calcium 8.8 mg/dL (8.6-10.3); Potassium 3.8 mmol/L (3.5-5.0)
[2020-12-29] MEDS ORDERED: Flu vaccine *QUAD* 2021-22* 0.5 ML SYRINGE IM ONE (09:00)
[2020-12-29] MEDS: Ciprofloxacin 400mg IVPREMIX 400 MG/200 ML BAG IVPB SCH (09:45)
[2020-12-29 12:37] VITALS: BP 116/69
[2020-12-29] MEDS ORDERED: Pneumococcal Vac 23-Polyvalent IM ONE (15:00)
[2020-12-31 14:25] LABS: Anaplasma phagocytophilum Negative (Negative); B. miyamotoi PCR, B Negative (Negative); Babesia divergens/MO-1 Negative (Negative); Babesia ducani Negative (Negative); Ehrlichia chaffeensis Negative (Negative); Ehrlichia ewingii/canis Negative (Negative); Ehrlichia muris eauclairensis Negative (Negative)
== END 2020-12-29 16:05 | disposition home or self-care (01) | DRG 872 ==
LOC: ED 10:56 → MED 10:56
PROVIDERS: ADMIT Hospitalist; ATTEND Hospitalist

== ENCOUNTER 2021-07-24 21:13 | Observation (INO) ==
[2021-07-24 23:28] LABS: ABS Eosinophils 0.1 10^3/ul (0-0.6); ABS Lymphocytes 1.4 10^3/ul (1.0-4.8); ABS Monocytes 0.8 10^3/ul (0-0.8); ABS Neutrophils 7.4 10^3/ul (1.5-7.7); Eosinophil % 0.6 %; Hematocrit 35 % (42-52); Hemoglobin 11.4 g/dL (14.0-18.0); Lymphocyte % 14.1 %; Mean Corpuscular HGB Conc 33 g/dL (31-36); Mean Corpuscular Hemoglobin 30 pg (27-31); Mean Corpuscular Volume 92 fL (80-94); Mean Platelet Volume 8.7 fL (7.4-10.4); Platelet Count 197 10^3/uL (150-450); Red Blood Count 3.77 10^6 /uL (4.18-5.48); Red Cell Distribution Width 15 % (10-15); White Blood Count 9.7 10^3/uL (3.5-10.8)
[2021-07-24 23:45] LABS: Albumin 3.7 g/dL (3.2-5.2); Albumin/Globulin Ratio 1.1 (1-3); Calcium 8.4 mg/dL (8.6-10.3); Globulin 3.5 g/dL (2-4); Potassium 3.8 mmol/L (3.5-5.0); Total Bilirubin 0.3 mg/dL (0.2-1.0); Total Protein 7.2 g/dL (6.4-8.9); eGFR CKD-EPI 91.6 (>60)
[2021-07-25 01:06] LABS: High Sensitivity Troponin 1 Hr 8 pg/mL (<20)
[2021-07-25] MEDS ORDERED: Iohexol 350 (CONTRAST) 500 ML MDV IV ONE (01:41)
[2021-07-25] MEDS ORDERED: Furosemide 40 mg/4 ml IV VIAL IV ONE (06:19)
[2021-07-25] MEDS ORDERED: Dextrose 50% Syringe 50 ml 25 GM/50 ML SYRINGE IV PUSH PRN (06:27)
[2021-07-25 06:28] LABS: C Reactive Protein 19.41 mg/L (<8.01)
[2021-07-25] MEDS ORDERED: HYDROcodone/ACETAMIN 5/325 mg TAB PO PRN (06:48)
[2021-07-25] MEDS ORDERED: Enoxaparin 40 MG/0.4 ML SYR SUBCUT SCH (07:30)
[2021-07-25 12:08] LABS: PCO2 Arterial 46 mmHg (35-45); PO2 Arterial 62 mmHg (80-100)
[2021-07-25 15:43] VITALS: BP 140/82
[2021-07-25] MEDS ORDERED: Albuterol HFA INHALER 8 gm MDI INH PRN (16:03)
== END 2021-07-25 16:28 | disposition home or self-care (01) ==
LOC: ED 21:13 → EDHOLD 21:13 → MED 07-25 09:57
PROVIDERS: ADMIT Internal Medicine; ATTEND Internal Medicine

== ENCOUNTER 2023-07-29 01:45 | Inpatient (IN) ==
[2023-07-29] MEDS ORDERED: Albuterol/Ipratropium NEB.SOL (2.5/0.5 MG) 3 ML NEB.SOLN ONE (02:07)
[2023-07-29] MEDS: Albuterol/Ipratropium NEB.SOL (2.5/0.5 MG) 3 ML NEB.SOLN INH PRN (02:13)
[2023-07-29] MEDS: methylPREDNISolone SOD SUCC 125 mg 2 ML VIAL IV ONE (03:00)
[2023-07-29 03:07] LABS: Venous Bicarbonate HCO3 29.1 mmol/L (24-28)
[2023-07-29 03:11] LABS: ABS Eosinophils 0.1 10^3/uL (0.0-0.5); ABS Lymphocytes 0.9 10^3/uL (1.0-4.8); ABS Monocytes 0.4 10^3/uL (0.0-1.1); ABS Neutrophils 5.3 10^3/uL (1.5-7.6); ABS Nucleated RBC 0.01 10^3/ul; Eosinophil % 1.4 %; Hematocrit 32.1 % (38-53); Hemoglobin 10.5 g/dL (13.2-16.3); Lymphocyte % 13.9 %; Mean Corpuscular Hemoglobin 30.5 pg (27-33); Mean Corpuscular Hgb Conc 32.7 g/dL (31-36); Mean Corpuscular Volume 93.3 fL (80-97); Mean Platelet Volume 8.4 fL (7.5-11.2); Nucleated Red Blood Cells % 0.1 %/100WBC (0.0-0.8); Platelet Count 227 10^3/uL (150-450); Red Blood Count 3.44 10^6/uL (4.06-5.63); Red Cell Distribution Width 15.8 % (12-17); White Blood Count 6.8 10^3/uL (3.6-10.2)
[2023-07-29 03:44] LABS: Albumin 3.9 g/dL (3.2-5.2); Albumin/Globulin Ratio 1.3 (1-3); Calcium 8.5 mg/dL (8.6-10.3); Creatinine, Serum 0.73 mg/dL (0.67-1.17); Globulin 3.1 g/dL (2-4); Magnesium 1.6 mg/dL (1.9-2.7); Potassium 4.4 mmol/L (3.5-5.0); Total Bilirubin 0.7 mg/dL (0.2-1.0); eGFR CKD-EPI 93.7 (>60)
[2023-07-29 04:33] LABS: High Sensitivity Troponin 1 Hr 10 pg/mL (<20)
[2023-07-29] MEDS: Albuterol/Ipratropium NEB.SOL (2.5/0.5 MG) 3 ML NEB.SOLN INH ONE (05:13)
[2023-07-29] MEDS: Furosemide 40 mg/4 ml IV VIAL IV ONE ×2 (05:24→12:07)
[2023-07-29] MEDS ORDERED: Albuterol HFA INHALER 8 gm MDI INH PRN (05:58)
[2023-07-29] MEDS ORDERED: Dextrose 50% Syringe 50 ml 25 GM/50 ML SYRINGE IV PUSH PRN (05:59)
[2023-07-29] MEDS: Enoxaparin 40 MG/0.4 ML SYR SUBCUT SCH (06:38)
[2023-07-29] MEDS: Albuterol HFA INHALER 8 gm MDI INH SCH (06:53)
[2023-07-29] MEDS: Mometasone/Formoter 200/5 MDI INH SCH (08:36)
[2023-07-29] MEDS: Albuterol/Ipratropium NEB.SOL (2.5/0.5 MG) 3 ML NEB.SOLN INH SCH ×2 (08:36→10:45)
[2023-07-29] MEDS: Magnesium Sulfate 2 gm BAG 2 GM/50 ML BAG IVPB ONE (08:48)
[2023-07-29] MEDS ORDERED: Albuterol/Ipratropium NEB.SOL (2.5/0.5 MG) 3 ML NEB.SOLN INH SCH ×2 (10:00→11:00)
[2023-07-29] MEDS: Sulfur Hexaflouride MICROSPHR 25 MG VIAL IV ONE (14:43)
[2023-07-29] MEDS: Insulin GLARGINE 100 un/ml 10 ml VIAL SUBCUT SCH (19:39)
[2023-07-30 07:46] LABS: ABS Lymphocytes 1.2 10^3/uL (1.0-4.8); ABS Monocytes 0.7 10^3/uL (0.0-1.1); ABS Neutrophils 7.6 10^3/uL (1.5-7.6); Eosinophil % 0.1 %; Hematocrit 33.8 % (38-53); Hemoglobin 10.9 g/dL (13.2-16.3); Lymphocyte % 12.6 %; Mean Corpuscular Hemoglobin 30.6 pg (27-33); Mean Corpuscular Hgb Conc 32.3 g/dL (31-36); Mean Corpuscular Volume 94.6 fL (80-97); Mean Platelet Volume 9.3 fL (7.5-11.2); Platelet Count 241 10^3/uL (150-450); Red Blood Count 3.57 10^6/uL (4.06-5.63); Red Cell Distribution Width 15.7 % (12-17); White Blood Count 9.5 10^3/uL (3.6-10.2)
[2023-07-30] MEDS: Albuterol/Ipratropium NEB.SOL (2.5/0.5 MG) 3 ML NEB.SOLN INH SCH (07:53)
[2023-07-30 08:08] LABS: Calcium 8.5 mg/dL (8.6-10.3); Creatinine, Serum 0.79 mg/dL (0.67-1.17); Magnesium 1.9 mg/dL (1.9-2.7); Potassium 4.5 mmol/L (3.5-5.0); eGFR CKD-EPI 91.5 (>60)
[2023-07-30] MEDS: Furosemide 20 mg/2 ml IV VIAL IV SCH ×2 (09:18→17:46)
[2023-07-30] MEDS ORDERED: Saline NASAL SPRAY 0.65% BTL BOTH NARES PRN (15:15)
[2023-07-31 06:11] LABS: ABS Eosinophils 0.1 10^3/uL (0.0-0.5); ABS Lymphocytes 1.4 10^3/uL (1.0-4.8); ABS Monocytes 0.6 10^3/uL (0.0-1.1); ABS Neutrophils 5.3 10^3/uL (1.5-7.6); Eosinophil % 1.3 %; Hematocrit 34.1 % (38-53); Hemoglobin 11.1 g/dL (13.2-16.3); Mean Corpuscular Hemoglobin 30.5 pg (27-33); Mean Corpuscular Hgb Conc 32.6 g/dL (31-36); Mean Corpuscular Volume 93.5 fL (80-97); Mean Platelet Volume 8.7 fL (7.5-11.2); Platelet Count 216 10^3/uL (150-450); Red Blood Count 3.65 10^6/uL (4.06-5.63); Red Cell Distribution Width 15.8 % (12-17); White Blood Count 7.5 10^3/uL (3.6-10.2)
[2023-07-31 06:24] LABS: Calcium 8.6 mg/dL (8.6-10.3); Creatinine, Serum 0.79 mg/dL (0.67-1.17); Magnesium 1.7 mg/dL (1.9-2.7); Potassium 4.4 mmol/L (3.5-5.0); eGFR CKD-EPI 91.5 (>60)
[2023-07-31] MEDS ORDERED: Albuterol/Ipratropium NEB.SOL (2.5/0.5 MG) 3 ML NEB.SOLN INH PRN (08:03)
[2023-07-31] MEDS: Magnesium Sulf 4 GM/100 ML IV 4,000 MG/100 ML BAG IVPB ONE (13:28)
[2023-08-01 05:41] LABS: ABS Eosinophils 0.1 10^3/uL (0.0-0.5); ABS Lymphocytes 1.2 10^3/uL (1.0-4.8); ABS Monocytes 0.7 10^3/uL (0.0-1.1); ABS Neutrophils 6.6 10^3/uL (1.5-7.6); ABS Nucleated RBC 0.01 10^3/ul; Eosinophil % 1.5 %; Hematocrit 39.4 % (38-53); Hemoglobin 12.6 g/dL (13.2-16.3); Lymphocyte % 13.8 %; Mean Corpuscular Hemoglobin 29.8 pg (27-33); Mean Corpuscular Volume 93.4 fL (80-97); Nucleated Red Blood Cells % 0.1 %/100WBC (0.0-0.8); Platelet Count 248 10^3/uL (150-450); Red Blood Count 4.22 10^6/uL (4.06-5.63); Red Cell Distribution Width 15.8 % (12-17); White Blood Count 8.8 10^3/uL (3.6-10.2)
[2023-08-01 06:13] LABS: Calcium 9.5 mg/dL (8.6-10.3); Creatinine, Serum 0.78 mg/dL (0.67-1.17); Magnesium 1.9 mg/dL (1.9-2.7); Potassium 4.6 mmol/L (3.5-5.0); eGFR CKD-EPI 91.8 (>60)
[2023-08-01] MEDS: Magnesium Sulfate 2 gm BAG 2 GM/50 ML BAG IVPB ONE (11:48)
[2023-08-01] MEDS: Furosemide 40 mg/4 ml IV VIAL IV SLOW PU SCH (11:48)
[2023-08-01] MEDS: Meloxicam 7.5 mg TAB (NF) PO SCH (20:55)
[2023-08-02 05:47] LABS: ABS Eosinophils 0.1 10^3/uL (0.0-0.5); ABS Lymphocytes 1.5 10^3/uL (1.0-4.8); ABS Monocytes 0.9 10^3/uL (0.0-1.1); ABS Neutrophils 6.2 10^3/uL (1.5-7.6); ABS Nucleated RBC 0.01 10^3/ul; Eosinophil % 0.8 %; Hematocrit 37.4 % (38-53); Hemoglobin 12.4 g/dL (13.2-16.3); Lymphocyte % 17.2 %; Mean Corpuscular Hemoglobin 30.5 pg (27-33); Mean Corpuscular Hgb Conc 33.1 g/dL (31-36); Mean Platelet Volume 8.8 fL (7.5-11.2); Nucleated Red Blood Cells % 0.1 %/100WBC (0.0-0.8); Platelet Count 217 10^3/uL (150-450); Red Blood Count 4.07 10^6/uL (4.06-5.63); Red Cell Distribution Width 16.1 % (12-17); White Blood Count 8.6 10^3/uL (3.6-10.2)
[2023-08-02 06:06] LABS: Calcium 9.2 mg/dL (8.6-10.3); Creatinine, Serum 0.85 mg/dL (0.67-1.17); Magnesium 1.7 mg/dL (1.9-2.7); Potassium 4.1 mmol/L (3.5-5.0); eGFR CKD-EPI 89.5 (>60)
[2023-08-02] MEDS ORDERED: Regadenoson 0.4 MG/5 ML SYRINGE ONE (07:59)
[2023-08-02] MEDS: Magnesium Sulf 4 GM/100 ML IV 4,000 MG/100 ML BAG IVPB ONE (08:37)
[2023-08-02] MEDS ORDERED: Aminophylline 25 MG/ML VIAL ONE (11:04)
[2023-08-02] MEDS: Furosemide 40 mg/4 ml IV VIAL IV SLOW PU SCH (17:57)
[2023-08-02] MEDS ORDERED: Furosemide 40 mg/4 ml IV VIAL IV SLOW PU SCH (18:00)
[2023-08-03 06:02] LABS: Hematocrit 36.6 % (38-53); Mean Corpuscular Hemoglobin 30.5 pg (27-33); Mean Corpuscular Hgb Conc 32.8 g/dL (31-36); Mean Platelet Volume 9.4 fL (7.5-11.2); Platelet Count 205 10^3/uL (150-450); Red Blood Count 3.93 10^6/uL (4.06-5.63); Red Cell Distribution Width 15.9 % (12-17); White Blood Count 8.7 10^3/uL (3.6-10.2)
[2023-08-03 06:30] LABS: Calcium 8.7 mg/dL (8.6-10.3); Creatinine, Serum 0.93 mg/dL (0.67-1.17); Magnesium 2.2 mg/dL (1.9-2.7); Potassium 3.9 mmol/L (3.5-5.0); eGFR CKD-EPI 84.6 (>60)
[2023-08-03] MEDS: Potassium Chlor 20 meq TAB.ER PO ONE (08:42)
[2023-08-03 10:39] VITALS: BP 116/68
== END 2023-08-03 13:00 | disposition home or self-care (01) | DRG 291 ==
LOC: ED 01:45 → EDHOLD 01:45 → SUATTDRO 05:52 → ICU 07:41 → EDHOLD 09:23 → MEDTELE 14:11
PROVIDERS: ADMIT Internal Medicine; ATTEND Internal Medicine